=== PATIENT | male | born 1965 | race Caucasian/White ===

== ENCOUNTER 2021-04-09 08:26 | Outpatient (CLI) | payer MEDICARE, MEDICAID, SELFPAY ==
--- NOTE | ~2021-04-09 | MR_ITS ---
EXAMINATION: MR scapula RT wo con DATE: 04/09/2021 09:38 INDICATION: Right scapula pain. Injury 2 1/2 months ago. TECHNIQUE: Magnetic resonance imaging (MRI) of the right scapula was performed without intravenous co ntrast. Sequences included axial PD-weighted FS FSE and sagittal oblique and coronal oblique T2-weigh sofy FS FSE and T1-weighted FSE. COMPARISON: Right shoulder MRI 08/01/2009 FINDINGS: Bone alignment is normal. No fracture. There is mild osteoarthritis of acromioclavicular danisha int. There is mild subacromial/subdeltoid bursitis. There is a partial thickness tear of rotator cuff . There is no asymmetric fatty atrophy of the rotator cuff muscle bellies. IMPRESSION: 1. No fracture. 2. Partial-thickness tear of the right rotator cuff. 3. Mild osteoarthritis of acromioclavicular joint. 4. Mild subacromial/subdeltoid bursitis. Reviewed, dictated and finalized at location A.
== END 2021-04-09 08:27 | disposition home or self-care (01) ==
PROVIDERS: PCP Internal Medicine; Visit Provider Internal Medicine
DX: S39.92XA Unspecified injury of lower back, initial encounter (principal); M75.111 Incomplete rotator cuff tear or rupture of right shoulder, not specified as traumatic; M19.011 Primary osteoarthritis, right shoulder; M75.51 Bursitis of right shoulder
CPT/HCPCS: 73218

== ENCOUNTER 2021-05-02 09:15 | Inpatient (IN) | payer MEDICARE, MEDICAID, SELFPAY ==
--- NOTE | ~2021-05-02 | XR_ITS ---
EXAMINATION: XR sm bowel follow through WS EXAM DATE: 05/02/2021 17:22 INDICATION: Intussusception on CT. 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 Omnipaque/water soluble solution administered for small zaheer wel exam performed by radiologist Mitch Hutson M.D.. Spot images of the terminal ileum were acquired. Pulsed dose reduction fluoroscopy was used with fluoroscopic time of 0.3. A total of 56 images obt ained for the exam. Correlation is made to CT abdomen pelvis same date. FINDINGS: The 15, 30 and 45 minute KUB examinations demonstrated appearing jejunum and proximal ileum. On the 1 hour KUB there is a focal segment of small bowel narrowing which is indicated on this image. Length and location is consistent with intussusception seen on CT scan. This focal narrowing was not identified on the 1.5 hour or 2 hour image, and there was progressive op acification of ileum to the colon with a transit time of 2 hours. During this time patient had fallen asleep on the fluoroscopy table. When I discussed this case with him while obtaining spot images of the terminal ileum, indicated maybe his body reset itself , says he's had multiple episodes of this in the past. IMPRESSION: Probable identification of intussusception on 1hour KUB, which may have subsequently res olved, with adequate transit time of 2 hours to the cecum. Consider observing overnight and repeatin g CT if symptomatic tomorrow. Reviewed, dictated and finalized at location A. IMPRESSION: Probable identification of intussusception on 1hour KUB, which may have subsequently resolved, with adequate transit time of 2 hours to the cecum . Consider observing overnight and repeating CT if symptomatic tomorrow.
--- NOTE | ~2021-05-02 | CT_ITS ---
EXAMINATION: CT abdomen pelvis w con EXAM DATE: 05/02/2021 10:56 INDICATION: Right flank pain with nausea and vomiting for 3 days. TECHNIQUE: Spiral CT of the abdomen and pelvis was performed following intravenous injection of 100 m L Omnipaque 350. Axial, coronal and sagittal images of the abdomen and pelvis were reviewed. The do se-length product (DLP) for this examination was 541.18 mGy-cm. The exposure was tailored according to patient size (auto mA exposure control), and iterative reconstruction (ASIR) was used as additiona l dose reduction technique. There is no prior study for comparison. FINDINGS: The liver, spleen, adrenal glands and pancreas are unremarkable. Gallbladder is unremarkab le. No biliary obstruction. Portal and splenic veins are patent. Kidneys enhance symmetrically. T here is no hydronephrosis. The prostate is unremarkable. The bladder is unremarkable. There is no retroperitoneal or pelvic lymphadenopathy. There is approximately 6 cm of jejunal intussusception in the left mid abdomen. This has been indicat ed on axial image 83, coronal images 50-60. Mesentery does not appear inflamed and bowel is not dilat ed or obstructed appearing. Uncertain whether or not this is incidental and asymptomatic or causing p atient's acute symptoms. The appendix is not positively visualized. There is no pericecal inflammatory change to suggest appe ndicitis. There is expected amount of colonic stool. No free intraperitoneal gas. The heart is normal in size. There are no pericardial or pleural effusions. The lung bases are unremarkable. Th ere are no osteoblastic or osteolytic lesions identified. IMPRESSION: 1. Jejunal 6 cm length intussusception. Uncertain whether this is causing patient's symptoms or an i ncidental transient finding. 2. Otherwise unremarkable exam. Reviewed, dictated and finalized at location A. IMPRESSION: 1. Jejunal 6 cm length intussusception. Uncertain whether this is causing [place] ent's symptoms or an incidental transient finding. 2. Otherwise unremarkable exam.
--- NOTE | ~2021-05-02 | CT_ITS ---
EXAMINATION: CT abdomen pelvis wo con DATE: 05/03/2021 08:04 INDICATION: Possible persistent intussusception TECHNIQUE: Computed tomography (CT) of the abdomen and pelvis was performed without intravenous contr ast. Automated exposure control and iterative reconstruction technique were employed. The dose-length product was 528.02 mGy-cm. COMPARISON: 05/02/2021 FINDINGS: Minimal discoid atelectasis in the left lower lobe. Heart size is normal. No pericardial or pleural e ffusion. Liver, gallbladder, spleen, pancreas, bilateral adrenal glands and kidneys are normal. Bladd er is normal containing small amount of contrast likely related to the prior study. Oral contrast mat erial is now seen in the ileum and throughout the colon extending to the rectum. No abnormal bowel wa ll thickening or obstruction. The previously visualized likely transient small bowel intussusception is no longer visualized and is likely spontaneously reduced. No free intraperitoneal gas or fluid. No pathologically enlarged abdominal or pelvic lymphadenopathy. Mild scattered degenerative skeletal ch anges. IMPRESSION: 1. No acute intra-abdominal/pelvic process. Specifically no residual small bowel intussusception. Reviewed, dictated and finalized at location A. IMPRESSION: 1. No acute intra-abdominal/pelvic process. Specifically no residual small vianca l intussusception.
--- NOTE | 2021-05-02 09:18 | ED.GENADULT ---
HPI - General Adult General Chief complaint: Back Pain/Injury Stated complaint: N/V - right lower back pain Time Seen by Provider: 05/02/21 09:17 History of Present Illness HPI narrative: Patient is a 56-year-old male with past medical history significant for hypertension, peptic ulcer disease, hyperlipidemia, chronic back pain who comes to the ED today complaining of right-sided lower back pain for the last 15 days. Progressively worsening. Pain is constant but has shockwaves frequently. The pain radiates into his lower abdomen and into his right thigh. Blood no known exacerbating or alleviating factors. He has had associated nausea and vomiting and notes he cannot keep anything down including his medicines which includes oxycodone which he takes frequently for his chronic back pain. He says that this pain feels different than his chronic back pain. He says he is never had this type of pain before. He denies any fevers, diarrhea, constipation, paresthesia, bowel or bladder incontinence drainage, urinary symptoms or any other concerns. Related Data Home Medications Medication Instructions Recorded Confirmed oxycodone-acetaminophen 7.5 mg-325 1 tablet PO Q4H PRN tablet 06/03/19 03/14/21 mg tablet methocarbamol 500 mg tablet 500 mg PO ONCE PRN tablet 11/26/20 03/14/21 Allergies Allergy/AdvReac Type Severity Reaction Status Date / Time No Known Allergies Allergy Verified 05/02/21 09:38 Review of Systems Constitutional: Constitutional: Reports as per HPI, Denies fever(s), Denies night sweats and Denies weakness Cardiovascular: Cardiovascular: Denies chest pain, Denies edema, Denies leg edema, Denies dyspnea and Denies orthopnea Respiratory: Respiratory: Denies cough and Denies dyspnea Gastrointestinal: Gastrointestinal: Reports as per HPI, Reports abdominal pain, Denies constipation, Denies diarrhea, Reports nausea and Reports vomiting Musculoskeletal: Musculoskeletal: Reports as per HPI, Denies abnormal gait, Reports back pain, Denies numbness and Denies tingling Neurologic: Denies Abnormal speech present, Denies abnormal gait, Denies numbness, Denies tingling and Denies weakness Psychiatric: Psychiatric: Denies homicidal ideation and Denies suicidal ideation [facility] Family History Family History Father Family history of diabetes mellitus in first degree relative Family history of heart disease in male family member before age 55 Family history of malignant neoplasm Mother Family history of diabetes mellitus in first degree relative Family history of heart disease in male family member before age 55 Family history of malignant neoplasm Sibling Family history of diabetes mellitus in first degree relative Family history of heart disease in male family member before age 55 Social History Social History (Reviewed 03/14/21 @ 09:21 by Maria De Jesus Barnhart [facility]) Smoking packs per day: 0.75 Smoking cigarettes per day: 15.0 Years smoked: 10 Smoking pack-years: 7.50 Smoking status: Former smoker Tobacco type: cigarettes Second hand tobacco smoke exposure: Yes Smoking end date: 07/03/20 Alcohol intake: never Substance use: current Substance use type: marijuana Other substance usage details: medical Exam Const: General: cooperative, no acute distress, well developed, alert, awake, Physically active, uncomfortable and other (Uncomfortable appearing, he is frequently writhing in pain) Orientation/consciousness: patient oriented x3 Other: Occasionally gets irritated with my questions HENMT: Head: normal to inspection, normocephalic and atraumatic Ears: external ears normal General nose exam: Normal external nose present Eyes: Pupils: Equal, round and reactive pupils present EOM: EOMs intact bilaterally Neck: Neck: normal visual inspection Chest: Chest palpation & inspection: normal inspection of the chest and no tenderness Resp
[2021-05-02 09:30] VITALS: BP 146/96; PULSE 57; RESP 18; TEMP 36.8; O2SAT 100
[2021-05-02] MEDS: ONDANSETRON INJ 4 MG/2 ML VIAL IV PUSH ×2 (10:05→13:19)
[2021-05-02] MEDS: LACTATED RINGERS 1,000 ML 999 ML IV CONT (10:05)
[2021-05-02] MEDS: KETOROLAC 30 MG/ML VIAL (*BKC) IV PUSH (10:07)
[2021-05-02] MEDS: FAMOTIDINE 20 MG/2 ML VIAL IV PUSH (10:08)
[2021-05-02] MEDS: MORPHINE SULFATE (*CRX) 4 MG/ML INJ IV PUSH ×2 (10:09→13:19)
[2021-05-02 10:11] LABS: Basophils Percent Auto 0.2 % (0.2-1.2); Hematocrit 50.8 % (42.0-52.0); Hemoglobin 17.2 g/dL (14.0-18.0); Immature Granulocyte Absolute 0.06 K/mm3 (0.00-0.031); Immature Granulocyte Percent A 0.5 % (0-0.5); Lymphocytes Absolute Auto 2.01 K/mm3 (0.9-3.2); Lymphocytes Percent Auto 16.1 % (18.3-44.2); Mean Corpuscular HGB Conc 33.9 g/dl (32-36); Mean Corpuscular Hemoglobin 31.7 pg (26-34); Mean Corpuscular Volume 93.7 fl (80-100); Mean Platelet Volume 10.8 fl (7.4-10.4); Monocytes Absolute Auto 0.3 K/mm3 (0.1-0.6); Monocytes Percent Auto 2.2 % (2.6-8.5); Neutrophils Absolute Auto 10.1 K/mm3 (1.3-6.7); Platelet Count Result 261 k/mm3 (150-375); Red Blood Count 5.42 M/mm3 (4.6-6.20); Red Cell Distribution Width 12.5 % (11.5-14.5); White Blood Count 12.5 K/mm3 (4.5-10.0)
[2021-05-02 10:24] LABS: Add Urine Microscopic? YES; Appearance Urine Clear (Clear); Bilirubin Urine Negative (Negative); Blood Urine Negative (Negative); Color Urine Yellow (Yellow); Glucose Urine UA 2+ mg/dL (Negative); Ketones Urine Trace mg/dL (Negative); Leukocyte Esterase Ur Negative LEU/UL (Negative); Mucus Urine Rare /lpf; Nitrate Urine Negative (Negative); Protein Urine 1+ mg/dL (Negative); Specific Grav Ur 1.027 (1.001-1.035); Urobilinogen Urine Negative mg/dL (<2.0); WBC Urine 0-3 /hpf
[2021-05-02 10:36] LABS: Albumin Level 5.2 g/dL (3.5-5.1); Alkaline Phosphatase 74 U/L (38-126); Anion Gap 17 mmol/L (8-16); Aspartate Amino Transferase 35 U/L (17-59); Bilirubin,Total 0.7 mg/dL (0.2-1.3); Blood Urea Nitrogen 11 mg/dL (9-20); Calcium 9.7 mg/dL (8.4-10.2); Carbon Dioxide 22 mmol/L (22-30); Chloride 102 mmol/L (98-107); Estimated CRCL calculation 99 ml/min; Estimated Glomerular Filt Rate > 60; Glucose 175 mg/dL (65-110); Potassium 3.9 mmol/L (3.4-5.0); Sodium 141 mmol/L (137-145)
[2021-05-02 11:00] VITALS: BP 145/81; PULSE 60; RESP 9; O2SAT 100
[2021-05-02 11:49] LABS: Alanine Aminotransferase 30 U/L (4-50)
[2021-05-02 12:00] VITALS: BP 145/70; PULSE 75; RESP 18; O2SAT 100
[2021-05-02 14:26] VITALS: PULSE 75; RESP 18; O2SAT 100
--- NOTE | 2021-05-02 14:50 | PCAUD ---
called pt to verify medication, pt unable to tell nurse current medications.
[2021-05-02 14:53] VITALS: BMI 25.8
--- NOTE | 2021-05-02 15:02 | PCAUD ---
Marcia informed pt in pain 12/10 and having n&v, awaiting orders.
--- NOTE | 2021-05-02 15:02 | PCAUD ---
pt off floor for GI procedure.
--- NOTE | 2021-05-02 15:05 | PCAUD ---
called [facility]'s office for them to fax over medication list.
--- NOTE | 2021-05-02 15:10 | PCAUD ---
[facility] exchanged called to verify medications.
--- NOTE | 2021-05-02 15:25 | PM.IMHP ---
H&P: HPI History of Present Illness Date/Time: 05/02/21 15:20 <Marcia Malagon PA-C - Last Filed: 05/02/21 23:06> Chief Complaint: Right low back pain, nausea, vomiting. <Marcia Malagon PA-C - Last Filed: 05/02/21 23:06> Narrative: This is a 56-year-old male with history of anxiety, hypertension, hyperlipidemia, and chronic back pain on long-term opiate therapy presented to the emergency department earlier today via private vehicle from home for evaluation of right lower back pain, nausea, and vomiting. For the past 2 weeks he has been experiencing progressively worse, constant sharp, shooting ?shockwaves? in the right lower back radiating into the right lower abdomen and into the right thigh. This pain is different than that he experiences with his chronic back pain and he has never had similar symptoms in the past. Unfortunately he has also been having pretty significant nausea and vomiting with that and he has been unable to hold down his medications since last evening, including oxycodone which he takes as needed for his pain no typically only at bedtime. CT of the abdomen/pelvis done in the emergency department showed jejunal 6 cm length intussusception with no other significant findings and he is being admitted in this setting. Aside from a mildly increased WBC of 12.5, his labs are otherwise unremarkable. At the time my evaluation he has reproducible tenderness to palpation in the right lumbar paraspinous region to the point where he will jump off of the bed even with mild palpation. He has no tenderness to palpation of the abdomen though he has just received pain medications. With regards to the nausea and vomiting, he reports having several hospitalizations for the same and he has been seen by Dr. Gallardo though patient tells me no significant findings were ever noted. He also tells me that he has never heard the word intussusception before though he told Wendy Smith NP that he had a history of such in 2011. He does smoke medical marijuana daily, but only takes 1 to 3 hits at a time as needed for his pain. No fever, chills, or sweats. He had perhaps some small streaks of blood in his emesis but no overt hematemesis. No melena or hematochezia. <Marcia Malagon PA-C - Last Filed: 05/02/21 23:06> Review of Systems Review of Systems: Twelve systems were reviewed with pertinent positives and negatives as per HPI. No sick contacts. He has been having issues with his right shoulder and was told that he probably tore his rotator cuff and has an upcoming appoint with an orthopedic surgeon to discuss management. No hematuria or dysuria. Except as documented, all other systems were reviewed and are negative. <Marcia Malagon PA-C - Last Filed: 05/02/21 23:06> [facility] Past Medical History Medical History: Medical History Anxiety Chronic low back pain Chronic prescription opiate use Essential (primary) hypertension Gastroesophageal reflux disease without esophagitis History of cerebral hemorrhage History of intussusception 2011 Mixed hyperlipidemia Osteoarthritis of cervical spine Peptic ulcer Personal history of nicotine dependence <Marcia Malagon PA-C - Last Filed: 05/02/21 23:06> Surgical History Surgical History: Surgical History History of appendectomy History of facial surgery <Marcia Malagon PA-C - Last Filed: 05/02/21 23:06> Family History Family History: Family History Father Family history of diabetes mellitus in first degree relative Family history of heart disease in male family member before age 55 Family history of malignant neoplasm Mother Family history of diabetes mellitus in first degree relative Family history of heart disease in male family member before age 55 Family history of malignant ne
--- NOTE | 2021-05-02 15:33 | PM.CNGS ---
Assessment and Plan Assessment and plan (1) Intussusception: Code(s): K56.1 - Intussusception Status: Acute Assessment and Plan: CT scan reviewed and discussed with the patient in detail. There is a 6 cm segment of mid jejunal intussusception. Most commonly this is transient, although the patient is still having significant abdominal pain and vomiting. This does not appear to be causing a small bowel obstruction on the CT scan, although could consider an NG tube if his vomiting persists. One consideration could be that his violent vomiting caused the intussusception. It also appears that he has a history of this in the past, which resolved with conservative management. We have ordered a Gastrografin small bowel follow through to help further evaluate if this is transient or persistent, and this would also show if there is an obstruction. If there is an obstruction or still evidence of an intussusception and he does not improve, then he would require exploratory surgery. Could also consider repeating a CT scan tomorrow if he does not improve. Keep him NPO for now with IV fluids, analgesics PRN, and antiemetics. Phenergan has been added and will be given to the patient during his SBFT. Thank you for allowing us to see the patient in consultation and we will continue to follow along with you. (2) Essential (primary) hypertension: Code(s): I10 - Essential (primary) hypertension Status: Acute (3) Chronic low back pain: Code(s): M54.5 - Low back pain; G89.29 - Other chronic pain Status: Acute (4) Chronic prescription opiate use: Code(s): Z79.891 - manager terminal (current) use of opiate analgesic Status: Acute Assessment and Plan: Unable to take his pain medication over the past 24 hours as usual due to his nausea and vomiting. Possibility that some of this could be related to withdrawal? (5) Anxiety: Code(s): F41.9 - Anxiety disorder, unspecified Status: Acute Additional Plan I have discussed the patient's case and plan of care with Dr. Gavin. History of Present Illness Consult details Consult date: 05/02/21 Reason for consult: other (Jejunal intussusception) Requesting physician: Tez No PA-C Narrative: This is a 56 yo M who presented to the ER today with complaints of abdominal pain, back pain, and vomiting. He has a history hypertension, hyperlipidemia, peptic ulcer disease, and chronic back pain treated with opioids. The patient reports that he began having some moderate low back pain about 3 weeks ago that he initially thought was a muscle strain. He had been using heating pads and his medication for his chronic back pain to try and alleviate his pain. This did not seem to help. Yesterday evening, he reports having a sudden onset of violent vomiting. He reports an unnumerable amount of vomiting, more than 10 times. Shortly after vomiting, he began having severe lower abdominal pain. This is different than the pain he had been experiencing over the past few weeks. He has never had this pain before. He felt this was likely related to his violent vomiting. He states that he did not have any coffee ground or bloody emesis. The abdominal pain became so severe that he reports he was becoming delusional and decided to come to the ER. CT scan of the abdomen/pelvis was done and showed a 6 cm length jejunal intussusception. Labs showed mild leukocytosis, but were otherwise unremarkable. The patient was having severe abdominal pain and was vomiting in the ER. Our service was called by the ED physician. He is being admitted to the Hospitalist service and our service is consulted for the intussusception. Dr. Gavin has ordered a Gastrografin small bowel follow through, so I am now seeing the patient in radiology. When I entered the radiology room, the patient was jerking and flailing on the table while moaning. He would answer some of my questions initially but was mostly just moaning, which s
[2021-05-02] MEDS: HYDROmorphone HCL INJ (*CRX) 1 MG/ML SYR IV PUSH ×2 (15:47→20:37)
[2021-05-02] MEDS: PROMETHAZINE HCL 25 MG/ML AMPUL IM ×2 (15:52→20:37)
--- NOTE | 2021-05-02 16:07 | PCAUD ---
Spoke in [facility], office will fax medication list in am.
[2021-05-02 18:00] LABS: CRP < 0.5 mg/dL (<1.0)
[2021-05-02 18:25] LABS: Erythrocyte Sedimentation Rate 5 mm/hr (0-20)
[2021-05-02 19:26] LABS: Hemoglobin A1C 5.5 % (<5.7)
[2021-05-02 20:00] VITALS: O2SAT 94
[2021-05-02 22:00] VITALS: BP 91/59; PULSE 43; RESP 16; TEMP 36.7; O2SAT 94
[2021-05-03] MEDS: HYDROmorphone HCL INJ (*CRX) 1 MG/ML SYR IV PUSH ×5 (02:06→20:50)
[2021-05-03] MEDS: PROMETHAZINE HCL 25 MG/ML AMPUL IM (02:08)
[2021-05-03 06:00] VITALS: BP 125/72; PULSE 64; RESP 18; TEMP 36.8; O2SAT 97
[2021-05-03 08:00] VITALS: PULSE 64; RESP 18; O2SAT 97
--- NOTE | 2021-05-03 08:06 | PM.PNGS ---
Progress Note: A&P Assessment and Plan (1) Intussusception: Code(s): K56.1 - Intussusception Status: Acute Assessment and Plan: SBFT showed possible resolution of intussusception. No mass or filling defects identified that could be a lead point. Will get repeat CT this AM. If signs of intussusception still present, then will proceed with diagnostic laparoscopy today. If resolved, laparoscopy would not likely offer any benefit because bowel would most likely look normal. Discussed further workup at tertiary center as outpatient if this episode has resolved. 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 No more nausea or vomiting. Bowels moving. Abdomen tender from all of the vomiting, but he doesn't complain of any deeper abdominal pain. No fevers. Review of Systems Review of Systems: All systems reviewed & are unremarkable except as noted in HPI and below Exam Const: General: no acute distress and alert GI: Inspection: normal to inspection and non-distended GI Palp: Yes Soft to palpation, Yes Tenderness to palpation present (GI) (slight lower abdominal TTP), No Guarding due to palpation present (GI) and No Rebound tenderness present Percussion: Yes normal to percussion Auscultation: normal bowel sounds Objective Data Vital Signs Vital Signs: Vital Signs - 24 hr 05/02/21 09:30 05/02/21 11:00 05/02/21 12:00 Temperature 36.8 C Pulse Rate 57 L 60 75 Respiratory Rate 18 9 L 18 Blood Pressure 146/96 H 145/81 H 145/70 H Pulse Oximetry 100 100 100 05/02/21 14:26 05/02/21 20:00 05/02/21 22:00 Temperature 36.7 C Pulse Rate 75 43 L Respiratory Rate 18 16 Blood Pressure 91/59 L Pulse Oximetry 100 94 94 05/03/21 06:00 Temperature 36.8 C Pulse Rate 64 Respiratory Rate 18 Blood Pressure 125/72 Pulse Oximetry 97 Intake/Output Intake/Output: Intake & Output 04/30/21 05/01/21 05/02/21 05/03/21 23:59 23:59 23:59 23:59 Intake Total 1000 0 Output Total 0 50 Balance 1000 -50 Meds/Results Medications: Active Medications Generic Name Dose Route Start Last Admin Trade Name Freq PRN Reason Stop Dose Admin Hydromorphone HCl 1 mg 05/02/21 15:27 05/03/21 07:51 Hydromorphone Hcl Inj (*Crx) 1 Mg/Ml Syr IV PUSH 1 mg Q3H PRN Administration Pain Rated 7-10 Promethazine HCl 25 mg 05/02/21 15:27 05/03/21 02:08 Promethazine Hcl 25 Mg/Ml Ampul IM 25 mg Q4H PRN Administration Nausea And Vomiting Radiology Results: ITS Impressions Small Bowel X-Ray 05/02/21 17:24 IMPRESSION: Probable identification of intussusception on 1hour KUB, which may have subsequently resolved, with adequate transit time of 2 hours to the cecum. Consider observing overnight and repeating CT if symptomatic tomorrow. Labs Labs: Laboratory Results - last 24 hr 05/02/21 05/02/21 05/02/21 09:53 09:53 09:57 WBC 12.5 H RBC 5.42 Hgb 17.2 Hct 50.8 MCV 93.7 MCH 31.7 MCHC 33.9 RDW 12.5 Plt Count 261 MPV 10.8 H Immature Gran % (Auto) 0.5 Neut % (Auto) 81.0 H Lymph % (Auto) 16.1 L Hodgeman % (Auto) 2.2 L Eos % (Auto) 0.0 Baso % (Auto) 0.2 Lymph # (Auto) 2.01 Hodgeman # (Auto) 0.3 Eos # (Auto) 0.0 Baso # (Auto) 0.0 Abs Immat Gran (auto) 0.06 H Absolute Neuts (auto) 10.1 H Absolute Nucleated RBC 0.0 Nucleated RBC % 0.0 ESR Sodium 141 Potassium 3.9 Chloride 102 Carbon Dioxide
[2021-05-03] MEDS: LIDOCAINE 5% PATCH 3 PATCH TRANSDERM (10:59)
[2021-05-03] MEDS: CYCLOBENZAPRINE HCL 10 MG TABLET PO ×2 (10:59→17:37)
--- NOTE | 2021-05-03 13:14 | PM.IMPN ---
Progress Note: A&P Assessment and Plan (1) Intussusception: Code(s): K56.1 - Intussusception Status: Acute Assessment and Plan: Jejunal 6 cm length intussusception noted on CT. He just returned from a small bowel follow-through and he will remain NPO for the time being. He has received Phenergan with improvement in his nausea and he has not had emesis for a couple of hours. Should he continue to have persistent vomiting NG tube would be appropriate. 05/03 Interval History:Patient clinical symptoms are improved and SBFT showed resolution of intussusception and patient of the BM with contrast, seen by surgery service to further evaluate patient had a CT scan of the abdomen which also showed complete resolution of intussusception. surgery service does not recommend any surgical intervention recommended monitor conservatively, currently patient complains of persistent low back which he developed while vomiting and believes patient has full the muscle, will give the patient Flexeril and apply Lidoderm patches as well as have PT OT evaluate the patient and further recommendation to follow (2) Right-sided low back pain with sciatica: Qualifiers: Chronicity: chronic Sciatica laterality: sciatica of right side Qualified Code(s): M54.41 - Lumbago with sciatica, right side; G89.29 - Other chronic pain Code(s): M54.41 - Lumbago with sciatica, right side Status: Acute Assessment and Plan: This pain is different than his chronic back pain but seems to be lumbar radiculopathy with sciatica. Due to ongoing nausea and vomiting he has not been able to hold down his opiates thus will try IV dilaudid to see if we can get his pain under control. PT consulted for further recommendations. Consider MRI if no improvement. (3) Hyperglycemia: Code(s): R73.9 - Hyperglycemia, unspecified Status: Acute Assessment and Plan: Check fasting glucose and hemoglobin A1c. (4) Essential (primary) hypertension: Code(s): I10 - Essential (primary) hypertension Status: Acute Assessment and Plan: Blood pressures were reviewed and they are reasonably well controlled. Continue antihypertensives and monitor daily. (5) Anxiety: Code(s): F41.9 - Anxiety disorder, unspecified Status: Acute Assessment and Plan: Continue chronically prescribed clonazepam 2 mg b.i.d. 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 Subjective Date/time seen: 05/03/21 13:14 Chief Complaint: Right low back pain, nausea, vomiting. <Marcia Malagon PA-C - Last Filed: 05/02/21 23:06> Narrative: This is a 56-year-old male with history of anxiety, hypertension, hyperlipidemia, and chronic back pain on long-term opiate therapy presented to the emergency department earlier today via private vehicle from home for evaluation of right lower back pain, nausea, and vomiting. For the past 2 weeks he has been experiencing progressively worse, constant sharp, shooting ?shockwaves? in the right lower back radiating into the right lower abdomen and into the right thigh. This pain is different than that he experiences with his chronic back pain and he has never had similar symptoms in the past. Unfortunately he has also been having pretty significant nausea and vomiting with that and he has been unable to hold down his medications since last evening, including oxycodone which he takes as needed for his pain no typically only at bedtime. CT of the abdomen/pelvis done in the emergency department showed jejunal 6 cm length intussusception with no other significant findings and he is being admitted in this setting. Aside from a mildly increased WBC of 12.5, his labs are otherwise unremarkable. At the time my evaluation he has reproducible tenderness to p
[2021-05-03 14:44] VITALS: BP 123/73; PULSE 65; RESP 14; TEMP 36.9; O2SAT 92
[2021-05-03 21:55] VITALS: BP 114/68; PULSE 56; RESP 18; TEMP 37.1; O2SAT 98
[2021-05-04] MEDS: HYDROmorphone HCL INJ (*CRX) 1 MG/ML SYR IV PUSH ×3 (01:36→09:50)
[2021-05-04 05:26] VITALS: BP 128/81; PULSE 72; RESP 20; TEMP 37.2; O2SAT 94
[2021-05-04 06:43] LABS: Hematocrit 43.8 % (42.0-52.0); Hemoglobin 14.5 g/dL (14.0-18.0); Mean Corpuscular HGB Conc 33.1 g/dl (32-36); Mean Corpuscular Hemoglobin 31.8 pg (26-34); Mean Corpuscular Volume 96.1 fl (80-100); Mean Platelet Volume 10.2 fl (7.4-10.4); Platelet Count Result 195 k/mm3 (150-375); Red Blood Count 4.56 M/mm3 (4.6-6.20); Red Cell Distribution Width 12.3 % (11.5-14.5); White Blood Count 11.8 K/mm3 (4.5-10.0)
[2021-05-04 06:59] LABS: Alanine Aminotransferase 19 U/L (4-50); Albumin Level 4.1 g/dL (3.5-5.1); Alkaline Phosphatase 51 U/L (38-126); Anion Gap 8 mmol/L (8-16); Aspartate Amino Transferase 46 U/L (17-59); Blood Urea Nitrogen 20 mg/dL (9-20); Calcium 8.7 mg/dL (8.4-10.2); Carbon Dioxide 27 mmol/L (22-30); Chloride 101 mmol/L (98-107); Estimated CRCL calculation 88 ml/min; Estimated Glomerular Filt Rate > 60; Glucose 99 mg/dL (65-110); Magnesium 2.2 mg/dL (1.6-2.3); Potassium 3.6 mmol/L (3.4-5.0); Sodium 136 mmol/L (137-145)
[2021-05-04 08:00] VITALS: PULSE 72; RESP 20; O2SAT 94
--- NOTE | 2021-05-04 08:31 | PM.DS ---
DS: Admitting Diagnosis Discharge Date 05/04/2021 Admitting Diagnosis Right low back pain, nausea, vomiting. DS: Discharge Diagnosis Discharge Diagnosis (1) Intussusception: Code(s): K56.1 - Intussusception Status: Acute Assessment and Plan: Jejunal 6 cm length intussusception noted on CT. He just returned from a small bowel follow-through and he will remain NPO for the time being. He has received Phenergan with improvement in his nausea and he has not had emesis for a couple of hours. Should he continue to have persistent vomiting NG tube would be appropriate. 05/03 Interval History:Patient clinical symptoms are improved and SBFT showed resolution of intussusception and patient of the BM with contrast, seen by surgery service to further evaluate patient had a CT scan of the abdomen which also showed complete resolution of intussusception. surgery service does not recommend any surgical intervention recommended monitor conservatively, currently patient complains of persistent low back which he developed while vomiting and believes patient has full the muscle, will give the patient Flexeril and apply Lidoderm patches as well as have PT OT evaluate the patient and further recommendation to follow (2) Right-sided low back pain with sciatica: Qualifiers: Chronicity: chronic Sciatica laterality: sciatica of right side Qualified Code(s): M54.41 - Lumbago with sciatica, right side; G89.29 - Other chronic pain Code(s): M54.41 - Lumbago with sciatica, right side Status: Acute Assessment and Plan: This pain is different than his chronic back pain but seems to be lumbar radiculopathy with sciatica. Due to ongoing nausea and vomiting he has not been able to hold down his opiates thus will try IV dilaudid to see if we can get his pain under control. PT consulted for further recommendations. Consider MRI if no improvement. (3) Hyperglycemia: Code(s): R73.9 - Hyperglycemia, unspecified Status: Acute Assessment and Plan: Check fasting glucose and hemoglobin A1c. (4) Essential (primary) hypertension: Code(s): I10 - Essential (primary) hypertension Status: Acute Assessment and Plan: Blood pressures were reviewed and they are reasonably well controlled. Continue antihypertensives and monitor daily. (5) Anxiety: Code(s): F41.9 - Anxiety disorder, unspecified Status: Acute Assessment and Plan: Continue chronically prescribed clonazepam 2 mg b.i.d. 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 DS: Summary Hospital Course Reason for hospitalization: Chief Complaint: Right low back pain, nausea, vomiting. <Marcia Malagon PA-C - Last Filed: 05/02/21 23:06> Narrative: This is a 56-year-old male with history of anxiety, hypertension, hyperlipidemia, and chronic back pain on long-term opiate therapy presented to the emergency department earlier today via private vehicle from home for evaluation of right lower back pain, nausea, and vomiting. For the past 2 weeks he has been experiencing progressively worse, constant sharp, shooting ?shockwaves? in the right lower back radiating into the right lower abdomen and into the right thigh. This pain is different than that he experiences with his chronic back pain and he has never had similar symptoms in the past. Unfortunately he has also been having pretty significant nausea and vomiting with that and he has been unable to hold down his medications since last evening, including oxycodone which he takes as needed for his pain no typically only at bedtime. CT of the abdomen/pelvis done in the emergency department showed jejunal 6 cm length intussusception with no other significant findings and he is being admitted in this setting. Aside
== END 2021-05-04 09:15 | disposition home or self-care (01) | DRG 390 ==
LOC: ANHED 13:01 → ANH3MEDSUR 13:46
PROVIDERS: Physician Assistant; Physician Assistant Medical; Admitting Provider Family Medicine; Emergency Provider Emergency Medicine; PCP Internal Medicine; Visit Provider Family Medicine
DX: K56.1 Intussusception (principal); M54.16 Radiculopathy, lumbar region; M54.41 Lumbago with sciatica, right side; R73.9 Hyperglycemia, unspecified; I10 Essential (primary) hypertension; F41.9 Anxiety disorder, unspecified; E78.5 Hyperlipidemia, unspecified; K21.9 Gastro-esophageal reflux disease without esophagitis; M47.892 Other spondylosis, cervical region; Z79.891 Long term (current) use of opiate analgesic; Z87.891 Personal history of nicotine dependence; Z87.11 Personal history of peptic ulcer disease; Z90.49 Acquired absence of other specified parts of digestive tract
CPT/HCPCS: 36415; 74176; 74177; 74250; 80053; 81001; 83036; 83735; 85025; 85027; 85652; 86140; 96361; 96372; 96374; 96375; 96376; 99285; A9270; G0378; J1170; J1885; J2270; J2405; J2550; J7120; Q9967

== ENCOUNTER 2021-05-13 13:13 | Outpatient (CLI) | payer MEDICARE, SELFPAY ==
--- NOTE | ~2021-05-13 | XR_ITS ---
XR shoulder RT min 2V DATE: 05/13/2021 13:35 INDICATION: Right shoulder pain TECHNIQUE: 4 views COMPARISON: None FINDINGS: No fracture or dislocation, periosteal reaction or bone destruction or abnormal soft tissue calcification. Normal alignment at the right acromioclavicular and glenohumeral joints. IMPRESSION: Negative Reviewed, dictated and finalized at location B. IMPRESSION: Negative
== END 2021-05-13 13:14 | disposition home or self-care (01) ==
PROVIDERS: PCP Internal Medicine; Visit Provider Orthopaedic Surgery
DX: M25.511 Pain in right shoulder (principal)
CPT/HCPCS: 73030

== ENCOUNTER 2021-06-10 12:15 | Outpatient (CLI) | payer MEDICARE, MEDICAID, SELFPAY ==
--- NOTE | ~2021-06-10 | XR_ITS ---
EXAMINATION: XR elbow RT min 3V EXAM DATE: 06/10/2021 13:05 INDICATION: Pain in Rt shoulder radiating down arm. TECHNIQUE: Right elbow frontal, lateral with flexion, and oblique projections obtained and reviewed. There is no prior study for comparison. FINDINGS: Right elbow anterior humeral line intact. There are no acute fractures or dislocations edgard ntified. There is no subcutaneous gas. The soft tissue is unremarkable. There are no radiopaque f oreign bodies. IMPRESSION: 1. Unremarkable XR elbow RT min 3V exam. Reviewed, dictated and finalized at location A. INE STRIPPER CUTTER
--- NOTE | ~2021-06-10 | XR_ITS ---
EXAMINATION: XR wrist RT min 3V EXAM DATE: 06/10/2021 13:05 INDICATION: Pain in Rt shoulder radiating down arm. TECHNIQUE: Right wrist frontal, frontal with ulnar deviation, oblique and lateral projections obtain ed and reviewed. There is no prior study for comparison. FINDINGS: Right wrist scapholunate joint space is maintained. Small lunate lucency likely subchondra l cyst. There is a healed 5th metacarpal shaft fracture. There are no acute fractures or dislocations identified. There is no subcutaneous gas. The soft tissue is unremarkable. There are no radiopaq ue foreign bodies. IMPRESSION: Chronic findings as above. Reviewed, dictated and finalized at location A. L TRIM ERECTOR IMPRESSION: Chronic findings as above.
== END 2021-06-10 12:16 | disposition home or self-care (01) ==
PROVIDERS: PCP Internal Medicine; Visit Provider Orthopaedic Surgery
DX: M79.601 Pain in right arm (principal)
CPT/HCPCS: 73080; 73110

== ENCOUNTER 2021-07-31 14:13 | Outpatient (CLI) | payer MEDICARE, MEDICAID, SELFPAY ==
--- NOTE | 2021-07-31 14:30 | ECG_ITS ---
Measurements Intervals [place] Rate: 70 P: 48 HI: 94 QRS: 7 QRSD: 79 T: 37 QT: 361 QTc: 392 Interpretive Statements SINUS RHYTHM WITH SHORT HI INTERVAL RSR' IN V1 OR V2, PROBABLY NORMAL VARIANT BASELINE ARTIFACT- I, II, III, AVR, AVL, AVF, V1-V6 BORDERLINE ECG Electronically Signed On 07-31-2021 15:37:26 MANAGER BUSINESS PROCESS by Alfredo Schmidt D.O.
== END 2021-07-31 14:14 | disposition home or self-care (01) ==
LOC: ANHSURGERY 14:19
PROVIDERS: PCP Internal Medicine; Visit Provider Orthopaedic Surgery
DX: E78.5 Hyperlipidemia, unspecified (principal); I10 Essential (primary) hypertension; Z01.818 Encounter for other preprocedural examination; R94.31 Abnormal electrocardiogram [ECG] [EKG]
CPT/HCPCS: 93005

== ENCOUNTER 2021-08-08 01:28 | Day surgery (SDC) | payer MEDICARE, MEDICAID, SELFPAY ==
[2021-07-30 14:30] VITALS: BMI 25.7
--- NOTE | 2021-07-30 14:51 | PC.NURSE ---
Report to the Outpatient Waiting Room, entrance under the green pavilion located off [facility], at time 8:00 on date 08/08/21. OR Time: 10:00. - You will be asked a series of questions to screen for COVID 19 for your protection. - A mask is required within the hospital. - No visitors are allowed at this time. Preoperative COVID Testing Requirements: No COVID Test needed if: (proof is required; if not received patient will have Rapid Test prior to entry) - Patient has received COVID Vaccine at least 14 days prior to procedure date or - Patient has positive COVID test result within last 90 days of surgery date. COVID Test needed if above criteria is not met Patients may have clear liquids (water, carbonated beverages, clear teas, apple juice) until 3 hours prior to surgery (7:00) with a maximum of 20 ounces. - No food from midnight until time of surgery Take the following medications with a SIP of water the morning of surgery: CLONAZEPAM AND PAIN PILL (IF NEEDED) Medications to discontinue per physician: VITAMINS/SUPPLEMENTS Date to take last dose: 08/04/21 Please no make-up, nail czech, hairspray, perfume, deodorant, or body powder the day of surgery. No jewelry (including any body piercings) or valuables the day of surgery, leave them at home. Please take a shower or bath the night before, or the morning of, surgery with an antibacterial soap. Wear comfortable, loose fitting clothing. - Jewelry must be removed prior to entering the operating room. Rings and piercings that are not removed may be cut off. - The hospital will not accept responsibility for valuables. - Please leave all valuables, including medications, at home the day of surgery. If you are going home after surgery, a licensed rail car driver must drive you home. - NO public transportation without another adult. - We recommend that an adult stay with you for 24 hours following discharge. - We also recommend that you do not drive, make important decision, drink alcoholic beverages, or take any drugs that were not prescribed by your health care provider for at least 24 hours after your discharge time. Follow any additional instructions given to you from your surgeon. Telephone instructions given to HALEIGH BLANCO and asked if any additional questions and then verbalized understanding. Patient advised to call surgeon office or pre surgery nurse liaison [phone] if any additional questions.
--- NOTE | 2021-08-07 13:04 | PM.IMHP ---
H&P: HPI History of Present Illness Date/Time: 08/07/21 13:04 Chief Complaint: Right arm pain, numbness and tingling Narrative: 56-year-old gentleman injured right arm January 01, 2021. Now with continued pain, numbness and tingling right elbow, forearm wrist and hand. Difficulty with activity and using the arm/ hand. 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 Failed conservative treatment with immobilization, anti-inflammatories, therapy. Presents for operative treatment. Review of Systems Constitutional: Constitutional: Denies fever(s) Eyes: Eyes: Denies blurry vision ENT: Reports Normal hearing present Cardiovascular: Cardiovascular: Denies chest pain and Denies dyspnea Respiratory: Respiratory: Denies dyspnea and Denies wheezing Gastrointestinal: Gastrointestinal: Denies abdominal pain Genitourinary: Genitourinary: Denies urinary urgency Musculoskeletal: Musculoskeletal: Reports as per HPI and Denies numbness Integumentary/Breasts: Skin/Breast: Denies changing lesions and Denies sores Neurologic: Reports Normal hearing present, Denies behavioral changes, Denies confusion, Denies numbness and Denies convulsions Psychiatric: Psychiatric: Denies behavioral changes, Denies confusion and Denies hallucinations Endocrine: Endocrine: Denies heat intolerance Hematologic/Lymphatic: Hematologic/Lymphatic: Denies easy bleeding Allergic/Immunologic: Allergic/Immunologic: Denies wheezing PMFSH Past Medical History Medical History (Updated 08/07/21 @ 13:09 by Gonzalez Sellers MD) Abdominal pain Anesthesia complication Anxiety Carpal tunnel syndrome, right Chronic low back pain Chronic prescription opiate use Chronic, continuous use of opioids Cubital tunnel syndrome on right Essential (primary) hypertension Gastroesophageal reflux disease without esophagitis Guyon syndrome History of cerebral hemorrhage History of intussusception 2011 HLD (hyperlipidemia) Hospitalization within last 30 days HTN (hypertension) Mixed hyperlipidemia Nausea & vomiting Osteoarthritis of cervical spine Peptic ulcer Personal history of nicotine dependence Stomach ulcer Ulnar neuropathy Vision loss Surgical History Surgical History History of appendectomy 1979 History of facial surgery 2000 Family History Family History Father Family history of diabetes mellitus in first degree relative Family history of heart disease in male family member before age 55 Family history of malignant neoplasm Mother Family history of diabetes mellitus in first degree relative Family history of heart disease in male family member before age 55 Family history of malignant neoplasm Sibling Family history of diabetes mellitus in first degree relative Family history of heart disease in male family member before age 55 Other Diabetes mellitus HLD (hyperlipidemia) Heart disease Hypertension Lung cancer Lung disease Social History Social History Social History: Surrogate decision maker: Veronica Garcias, . Code status: Full code. Smoking packs per day: 0.75 Smoking cigarettes per day: 15.0 Years smoked: 20 Smoking pack-years: 15.00 Smoking status: Current every day smoker Tobacco type: cigarettes Smokeless tobacco user: other Second hand tobacco smoke exposure: Yes Smoking end date: 07/03/20 Alcohol intake: never Substance use: current Substance use type: marijuana Other substance usage details: DAILY Additional living arrangements comments: Resides in [place] with his . Additional occupation/education comments: Unemployed/Disabled Gender identity (if verbalized by the patient): Male Spiritual care concerns: No Meds Home Medications and Allergies Home
--- NOTE | 2021-08-08 06:57 | WPDHPUPDATE1 ---
History and Physical Update Update Date/Time: 08/08/21 06:57 History and Physical has been reviewed, including an updated exam of the patient. There are NO changes in the patient's condition. Risks, benefits, and alternatives have been discussed and questions answered. Patient agrees to proceed with procedure.
[2021-08-08] MEDS: LACTATED RINGERS 1,000 ML 30 ML IV CONT ×2 (07:09→09:55)
[2021-08-08] MEDS: KETOROLAC 15 MG/ML VIAL (*BKC) IV PUSH (07:10)
[2021-08-08 07:33] VITALS: BP 104/68; PULSE 75; RESP 16; TEMP 37; O2SAT 95
--- NOTE | 2021-08-08 07:33 | WPDANESEPPF ---
Anes - Initial Pre Proc Eval Procedure: Operation Date: 08/08/21 08:30 Proposed Procedures p Right Carpal Tunnel Release, Right Cubital Tunnel Release - Gonzalez Sellers MD s Right Ulnar Tunnel Release - Gonzalez Sellers MD Date/Time: 08/08/21 07:33 Surgeon: Gonzalez Sellers MD Pre Op Diagnosis: Rt Carpal Tunnel Syn, Rt Cubital Tunnel Syn Patient Data Age: 56 Gender: M Height: 1.83 m Weight: 88.8 kg Allergies Allergy/AdvReac Type Severity Reaction Status Date / Time No Known Allergies Allergy Verified 08/08/21 06:16 Home Medications Medication Instructions Recorded Confirmed Type methocarbamol 500 mg tablet 500 mg PO ONCE PRN tablet 11/26/20 07/30/21 History enalapril maleate 20 mg tablet 20 mg PO DAILY #180 tablet 12/03/20 08/08/21 Rx simvastatin 80 mg tablet See Rx Instructions .ROUTE 12/03/20 08/08/21 Rx .COMPLEX #90 tablet clonazepam 2 mg tablet 2 mg PO BID #60 tablet 03/18/21 08/08/21 Rx pantoprazole 40 mg tablet,delayed 40 mg PO QAM #30 tablet 04/25/21 08/08/21 Rx release cyclobenzaprine 10 mg PO TID PRN #90 tablet 05/04/21 07/30/21 Rx multivitamin 1 tablet PO DAILY 05/16/21 08/08/21 History ondansetron HCl [Zofran] 4 mg PO Q8H PRN #10 tablet 08/08/21 Rx oxycodone-acetaminophen 1 tablet PO Q6H PRN #30 tablet 08/08/21 Rx sennosides-docusate sodium [Senna 1 tab-cap PO HS #14 tablet 08/08/21 Rx with Docusate Sodium] Patient hx anesthesia problems: none Family hx anesthesia problems: none Results Review: All pre-operative results and documents have been reviewed as part of the pre-operative evaluation. [facility] Past Medical History Medical History (Updated 08/07/21 @ 13:09 by Gonzalez Sellers MD) Abdominal pain Anesthesia complication Anxiety Carpal tunnel syndrome, right Chronic low back pain Chronic prescription opiate use Chronic, continuous use of opioids Cubital tunnel syndrome on right Essential (primary) hypertension Gastroesophageal reflux disease without esophagitis Guyon syndrome History of cerebral hemorrhage History of intussusception 2011 HLD (hyperlipidemia) Hospitalization within last 30 days HTN (hypertension) Mixed hyperlipidemia Nausea & vomiting Osteoarthritis of cervical spine Peptic ulcer Personal history of nicotine dependence Stomach ulcer Ulnar neuropathy Vision loss Surgical History Surgical History History of appendectomy 1980 History of facial surgery 2000 Family History Family History Father Family history of diabetes mellitus in first degree relative Family history of heart disease in male family member before age 55 Family history of malignant neoplasm Mother Family history of diabetes mellitus in first degree relative Family history of heart disease in male family member before age 55 Family history of malignant neoplasm Sibling Family history of diabetes mellitus in first degree relative Family history of heart disease in male family member before age 55 Other Diabetes mellitus HLD (hyperlipidemia) Heart disease Hypertension Lung cancer Lung disease Social History Social History Social History: Surrogate decision maker: Veronica Garcias, . Code status: Full code. Smoking packs per day: 0.75 Smoking cigarettes per day: 15.0 Years smoked: 10 Smoking pack-years: 7.50 Smoking status: Current every day smoker Tobacco type: smokeless tobacco Smokeless tobacco user: other Second hand tobacco smoke exposure: Yes Smoking end date: 07/03/20 Alcohol intake: never Substance use: current Substance use type: marijuana Other substance usage details: medical Living arrangements: with family Additional living arrangements comments: Resides in [place] with his . Additional occupation/education comments: Unemploye
[2021-08-08] MEDS: ceFAZolin 2 GM/D5W 50 ML 2 GM/50 ML BAG IVPB (08:38)
[2021-08-08] MEDS: BUPIVACAINE HCL 0.5% PF 30 ML VIAL INFILTRATE (09:03)
[2021-08-08 09:55] VITALS: BP 123/74; PULSE 94; RESP 16; TEMP 36.2; O2SAT 96
--- NOTE | 2021-08-08 10:07 | W.PM.PROC2 ---
Procedure Note - Detailed Date of Procedure 08/08/21 Pre-op Diagnosis Rt Carpal Tunnel Syn, Rt Cubital Tunnel Syn, right ulnar nerve compression at the wrist Post-op Diagnosis same Procedure Performed Right cubital tunnel release, right ulnar nerve and carpal tunnel release Surgeon Gonzalez Sellers MD Language And Literature Division Chair 1st rn first assistant Anesthesia general Indications 56-year-old gentleman with right arm pain, numbness and tingling. EMG nerve conduction studies shows ulnar nerve compression at the elbow and the wrist as well as median nerve compression at the carpal tunnel. Patient presents for operative treatment. Description of Procedure After informed consent was given, the operative extremity was marked in the preoperative holding area. Intravenous antibiotics were given. The patient was taken to the operating room and underwent general anesthesia by the anesthesia team. A time-out was performed confirming patient, procedure, and operative site. Local infiltrate at the carpal tunnel, ulnar tunnel and cubital tunnel was done with 0.5% marcaine. Prepping and draping was done using chloraprep skin solution with usual surgical sterile technique. Anatomic landmarks marked on skin. Hand was exsanguinated and arm tourniquet inflated to 225mmHg. Cubital tunnel was mapped out an incision made with a 15 blade knife. Hemostasis controlled electrocautery. Dissection then carried down to the retinaculum which was divided in line with the skin incision starting proximally and proceeding distally. The ulnar nerve was identified and protected during the released. There was tight and scarred fascia from the medial epicondyle and just distal to this. Branches of the ulnar nerve were protected. Good release was visualized proximally and distally. Elbow was then taken through range of motion and the nerve was noted to be stable in the groove. Wound thoroughly irrigated and subcutaneous tissue repaired with 3-0 Monocryl interrupted suture. Skin repaired with 4-0 nylon running suture. Incision was made with #15 blade knife in skin crease on volar palm on the ulnar aspect.. Hemostasis was achieved with electrocautery. Careful dissection was carried down to Guyon's canal in the ulnar nerve was released under direct visualization. Sensory branch to the palm was identified and protected. Ulnar nerve was then mobilized and using the hook of the hamate bone as a reference point the fascia overlying the deep motor branch of the ulnar nerve was released. Carpal tunnel was then addressed. Careful dissection was carried down to the transverse carpal ligament. Retractors were placed. Ligament overlying median nerve was incised in line with skin incision using [place] blade on the ulnar aspect to expose the carpal tunnel. Proximal and distal release was done with metzenbaum scissors under direct visualization. Mosquito clamp was placed deep to ligament to protect nerve during release. The nerve was inspected and noted to be intact with mild flattening. There was moderate synovitis present which was excised. Tendons had good excursion. The wound was thoroughly irrigated with antibiotic solution. The skin was closed with 4-0 nylon interrupted suture. A sterile dressing was applied. Good capillary refill in the fingers and thumb was noted. The patient was transported to the recovery room in stable condition. All sponge, needle, instrument counts were correct at the end of the case. Estimated Blood Loss 5 Tourniquet Time 50 Drains No Packing No Pathology none sent Complications None Condition stable Disposition PACU
[2021-08-08 10:10] VITALS: BP 116/63; PULSE 77; RESP 18; O2SAT 97
[2021-08-08 10:25] VITALS: BP 131/80; PULSE 86; RESP 18; O2SAT 98
[2021-08-08 10:35] VITALS: BP 121/81; PULSE 77; RESP 16
[2021-08-08 11:05] VITALS: BP 108/58; PULSE 74; RESP 16
[2021-08-08] MEDS: oxyCODONE HCL (*CRX) 5 MG TAB IR PO (11:19)
== END 2021-08-08 11:44 | disposition home or self-care (01) ==
PROVIDERS: PCP Internal Medicine; Visit Provider Orthopaedic Surgery
PROC: (CPT 64721; principal; 2021-08-08 08:30)
PROC: (CPT 64721; 2021-08-08 08:30)
DX: G56.01 Carpal tunnel syndrome, right upper limb (principal); G56.21 Lesion of ulnar nerve, right upper limb; I10 Essential (primary) hypertension; K21.9 Gastro-esophageal reflux disease without esophagitis; E78.2 Mixed hyperlipidemia; F41.9 Anxiety disorder, unspecified; Z79.891 Long term (current) use of opiate analgesic; F17.210 Nicotine dependence, cigarettes, uncomplicated; F12.90 Cannabis use, unspecified, uncomplicated
CPT/HCPCS: 64721; 64718; A4565; A9270; J0690; J1100; J1170; J1885; J2250; J2405; J2704; J3010; J7120

== ENCOUNTER 2021-08-11 06:31 | Emergency (ER) | payer MEDICARE, MEDICAID, SELFPAY ==
[2021-08-11 06:44] VITALS: BP 109/69; PULSE 80; RESP 18; TEMP 36.8; O2SAT 100
--- NOTE | 2021-08-11 07:09 | ED.WOUNDLAC ---
HPI - Wound/Laceration General Chief Complaint: Wound/Laceration Stated Complaint: Surgery complication Time Seen by Provider: 08/11/21 07:08 Source: patient Mode of arrival: ambulatory Limitations: no limitations History of Present Illness HPI narrative: The patient is a 56-year-old male presenting for evaluation of wound evaluation. Patient with carpal tunnel and antecubital release surgery by Dr. Sellers on August 08. Patient here stating that his right elbow wound is open. Patient states he has restless leg syndrome and moves throughout the night, he is unsure what else would have opened the wound. States that he thinks his sutures popped open. He denies any heavy bending or lifting. No recent injury. States he has not been touching the sutures. Patient denies any significant pain. States that he has tried calling multiple people and has talked to 12 people over the first 24 hours regarding this and does not want answer any my questions. When asked that the patient contact her Dr. Sellers's office regarding the wound, states that I talk to numerous people, no I have not contacted Dr. Sellers. He denies fever, chills. He is able to move the right elbow. He denies any current numbness. No significant redness. No drainage from the wound. Related Data Home Medications Medication Instructions Recorded Confirmed methocarbamol 500 mg tablet 500 mg PO ONCE PRN tablet 11/26/20 07/30/21 multivitamin 1 tablet PO DAILY 05/16/21 08/08/21 Allergies Allergy/AdvReac Type Severity Reaction Status Date / Time No Known Allergies Allergy Verified 08/11/21 06:35 Review of Systems Review of Systems: CONSTITUTIONAL: Denies fever CARDIOVASCULAR: Denies chest pain RESPIRATORY: Denies cough or dyspnea. GASTROINTESTINAL: Denies abdominal pain SKIN: Denies rash, reports sutures have popped open from right elbow wound MUSCULOSKELETAL: Denies back pain NEUROLOGIC: Denies headache PMFSH Past Medical History Medical History Abdominal pain Anesthesia complication Anxiety Carpal tunnel syndrome, right Chronic low back pain Chronic prescription opiate use Chronic, continuous use of opioids Cubital tunnel syndrome on right Essential (primary) hypertension Gastroesophageal reflux disease without esophagitis Guyon syndrome History of cerebral hemorrhage History of intussusception 2011 HLD (hyperlipidemia) Hospitalization within last 30 days HTN (hypertension) Mixed hyperlipidemia Nausea & vomiting Osteoarthritis of cervical spine Peptic ulcer Personal history of nicotine dependence Stomach ulcer Ulnar neuropathy Vision loss Surgical History Surgical History History of appendectomy 1980 History of facial surgery 2000 Family History Family History Father Family history of diabetes mellitus in first degree relative Family history of heart disease in male family member before age 55 Family history of malignant neoplasm Mother Family history of diabetes mellitus in first degree relative Family history of heart disease in male family member before age 55 Family history of malignant neoplasm Sibling Family history of diabetes mellitus in first degree relative Family history of heart disease in male family member before age 55 Other Diabetes mellitus HLD (hyperlipidemia) Heart disease Hypertension Lung cancer Lung disease Social History Social History Social History: Surrogate decision maker: Veronica Garcias, . Code status: Full code. Smoking packs per day: 0.75 Smoking cigarettes per day: 15.0 Years smoked: 10 Smoking pack-years: 7.50 Smoking status: Current every day smoker Tobacco type: smokeless tobacco Smokeless tobacco user: other Second hand tobacco s
[2021-08-11 07:30] VITALS: BP 101/67; PULSE 67; O2SAT 94
[2021-08-11 08:15] VITALS: BP 101/67; PULSE 76; RESP 18; O2SAT 96
== END 2021-08-11 08:17 | disposition home or self-care (01) ==
PROVIDERS: Emergency Provider Emergency Medicine; PCP Internal Medicine
DX: T81.31XA Disruption of external operation (surgical) wound, not elsewhere classified, initial encounter (principal); I10 Essential (primary) hypertension; K21.9 Gastro-esophageal reflux disease without esophagitis; E78.2 Mixed hyperlipidemia; M47.812 Spondylosis without myelopathy or radiculopathy, cervical region; Z87.11 Personal history of peptic ulcer disease; Z77.22 Contact with and (suspected) exposure to environmental tobacco smoke (acute) (chronic)
CPT/HCPCS: 99282

== ENCOUNTER 2021-08-13 00:42 | Day surgery (SDC) | payer MEDICARE, MEDICAID, SELFPAY ==
--- NOTE | 2021-08-12 13:54 | WPDANESEPPF ---
Anes - Initial Pre Proc Eval Procedure: Operation Date: 08/13/21 11:00 Proposed Procedures p Incision and Drainage Right Elbow - Gonzalez Sellers MD Date/Time: 08/12/21 13:54 Surgeon: Gonzalez Sellers MD Pre Op Diagnosis: right elbow wound dehiscence Patient Data Age: 56 Gender: M Height: Weight: Allergies Allergy/AdvReac Type Severity Reaction Status Date / Time No Known Allergies Allergy Verified 08/12/21 14:03 Home Medications Medication Instructions Recorded Confirmed Type enalapril maleate 20 mg tablet 20 mg PO DAILY #180 tablet 12/03/20 08/13/21 Rx simvastatin 80 mg tablet See Rx Instructions .ROUTE 12/03/20 08/13/21 Rx .COMPLEX #90 tablet pantoprazole 40 mg tablet,delayed 40 mg PO QAM #30 tablet 04/25/21 08/13/21 Rx release cyclobenzaprine 10 mg PO TID PRN #90 tablet 05/04/21 08/12/21 Rx multivitamin 1 tablet PO DAILY 05/16/21 08/13/21 History clonazepam 2 mg tablet 2 mg PO BID #60 tablet 08/08/21 08/13/21 Rx ondansetron HCl [Zofran] 4 mg PO Q8H PRN #10 tablet 08/08/21 08/12/21 Rx oxycodone-acetaminophen 1 tablet PO Q6H PRN #30 tablet 08/08/21 08/13/21 Rx sennosides-docusate sodium [Senna 1 tab-cap PO HS #14 tablet 08/08/21 08/12/21 Rx with Docusate Sodium] Patient hx anesthesia problems: none Family hx anesthesia problems: none Results Review: All pre-operative results and documents have been reviewed as part of the pre-operative evaluation. [facility] Past Medical History Medical History (Updated 08/12/21 @ 13:31 by Gonzalez Sellers MD) Abdominal pain Anesthesia complication Anxiety Carpal tunnel syndrome, right Chronic low back pain Chronic prescription opiate use Chronic, continuous use of opioids Cubital tunnel syndrome on right Encounter for postoperative care Essential (primary) hypertension Gastroesophageal reflux disease without esophagitis Guyon syndrome History of cerebral hemorrhage History of intussusception 2011 HLD (hyperlipidemia) Hospitalization within last 30 days HTN (hypertension) Mixed hyperlipidemia Nausea & vomiting Osteoarthritis of cervical spine Peptic ulcer Personal history of nicotine dependence Postoperative wound dehiscence Stomach ulcer Ulnar neuropathy Vision loss Surgical History Surgical History History of appendectomy 1980 History of facial surgery 2000 Family History Family History Father Family history of diabetes mellitus in first degree relative Family history of heart disease in male family member before age 55 Family history of malignant neoplasm Mother Family history of diabetes mellitus in first degree relative Family history of heart disease in male family member before age 55 Family history of malignant neoplasm Sibling Family history of diabetes mellitus in first degree relative Family history of heart disease in male family member before age 55 Other Diabetes mellitus HLD (hyperlipidemia) Heart disease Hypertension Lung cancer Lung disease Social History Social History Social History: Surrogate decision maker: Veronica Garcias, . Code status: Full code. Years smoked: 20 Smoking status: Current every day smoker Tobacco type: cigarettes Second hand tobacco smoke exposure: Yes Alcohol intake: never Substance use: current Substance use type: marijuana Other substance usage details: medical Living arrangements: with family Additional occupation/education comments: Unemployed/Disabled Gender identity (if verbalized by the patient): Male Spiritual care concerns: No Anes - Eval Final PreProcedure Day of Procedure 08/12/21 13:54 Patient weight: obese Heart: regular rate and rhythm Lungs: clear to auscultation and normal air movement Airway: Mallampati scale class II Neurological: alert and
[2021-08-12 14:04] VITALS: BMI 26.3
--- NOTE | 2021-08-12 14:11 | PC.NURSE ---
Report to the Outpatient Waiting Room, entrance under the green pavilion located off [facility], at time 0900 on date 08/13/21. OR Time: 1100. - You will be asked a series of questions to screen for COVID 19 for your protection. - A mask is required within the hospital. - No visitors are allowed at this time. Preoperative COVID Testing Requirements: No COVID Test needed if: (proof is required; if not received patient will have Rapid Test prior to entry) - Patient has received COVID Vaccine at least 14 days prior to procedure date or - Patient has positive COVID test result within last 90 days of surgery date. COVID Test needed if above criteria is not met Patients may have clear liquids (water, carbonated beverages, clear teas, apple juice) until 3 hours prior to surgery with a maximum of 20 ounces. - No food from midnight until time of surgery Take the following medications with a SIP of water the morning of surgery: CLONAZEPAM, PAIN PILL (IF NEEDED) Medications to discontinue per physician: VITAMINS/SUPPLEMENTS Date to take last dose: NOW Please no make-up, nail ukrainian, hairspray, perfume, deodorant, or body powder the day of surgery. No jewelry (including any body piercings) or valuables the day of surgery, leave them at home. Please take a shower or bath the night before, or the morning of, surgery with an antibacterial soap. Wear comfortable, loose fitting clothing. - Jewelry must be removed prior to entering the operating room. Rings and piercings that are not removed may be cut off. - The hospital will not accept responsibility for valuables. - Please leave all valuables, including medications, at home the day of surgery. If you are going home after surgery, a licensed utility worker driver must drive you home. - NO public transportation without another adult. - We recommend that an adult stay with you for 24 hours following discharge. - We also recommend that you do not drive, make important decision, drink alcoholic beverages, or take any drugs that were not prescribed by your health care provider for at least 24 hours after your discharge time. Follow any additional instructions given to you from your surgeon. Telephone instructions given to HALEIGH BLANCO and asked if any additional questions and then verbalized understanding. Patient advised to call surgeon office or pre surgery nurse liaison [phone] if any additional questions.
[2021-08-13] VITALS (9 sets, daily range): BP systolic 100–121; BP diastolic 68–81; PULSE 60–95; RESP 8–16; TEMP 36.5–36.8; O2SAT 92–97
[2021-08-13] MEDS: ACETAMINOPHEN 500 MG TABLET 1000 MG PO (09:14)
[2021-08-13] MEDS: KETOROLAC 15 MG/ML VIAL (*BKC) IV PUSH (09:24)
[2021-08-13] MEDS: LACTATED RINGERS 1,000 ML 30 ML IV CONT (09:24)
--- NOTE | 2021-08-13 11:12 | WPDHPUPDATE1 ---
History and Physical Update Update Date/Time: 08/13/21 11:12 History and Physical has been reviewed, including an updated exam of the patient. There are NO changes in the patient's condition. Risks, benefits, and alternatives have been discussed and questions answered. Patient agrees to proceed with procedure.
[2021-08-13] MEDS: ceFAZolin 2 GM/D5W 50 ML 2 GM/50 ML BAG IVPB (11:25)
--- NOTE | 2021-08-13 12:14 | P.OP_ITS ---
Procedure Note - Detailed Date of Procedure 08/13/21 Pre-op Diagnosis right elbow wound dehiscence Post-op Diagnosis same Procedure Performed Debridement right elbow complicated postoperative wound dehiscence with intermediate closure. Surgeon Gonzalez Sellers MD Insurance Follow Up Rep assistant purchasing manager Anesthesia general Indications 56-year-old who is 5 days status post right elbow cubital tunnel release. Patient has had a dehiscence of the wound through the fascia. Presents now for debridement and closure. Description of Procedure Patient identified in the preoperative holding. Informed consent given. Operative extremity marked. Patient received intravenous antibiotics. Patient brought to the operating room where underwent general anesthetic by anesthesia team. Positioned supine on operating room table. Time-out performed confirming the patient, site of the surgery and the plan. Right arm prepped and draped usual sterile surgical fashion using a Betadine prep solution. There was complete dehiscence of the cubital tunnel wound as well as the subcutaneous fascial closure with exposure of the nerve and medial epicondyle. This was thoroughly irrigated with bacitracin solution. No signs of infection were encountered. The ulnar nerve was inspected and noted to be intact without signs of injury. No active bleeding was noted. Local anesthetic with 0.5% Marcaine plain. Wound was then closed in layers with 3-0 Monocryl interrupted suture for the deep and subcutaneous tissue. The skin was then closed with 3-0 Prolene interrupted suture. Sterile dressing applied. In order to protect the repair a bulky dressing and splint was then applied. The patient was then woken from anesthesia, extubated and taken to the recovery room in stable condition. All sponge, needle, instrument counts were correct at the end of the case. Implants None Estimated Blood Loss 5 Tourniquet Time 0 Drains No Packing No Pathology none sent Complications None Condition stable Disposition PACU
[2021-08-13] MEDS: oxyCODONE HCL (*CRX) 5 MG TAB IR PO (14:02)
== END 2021-08-13 14:30 | disposition home or self-care (01) ==
PROVIDERS: PCP Internal Medicine; Visit Provider Orthopaedic Surgery
PROC: (CPT 13160; principal; 2021-08-13 11:00)
DX: T81.31XA Disruption of external operation (surgical) wound, not elsewhere classified, initial encounter (principal); Y83.8 Other surgical procedures as the cause of abnormal reaction of the patient, or of later complication, without mention of misadventure at the time of the procedure; I10 Essential (primary) hypertension; E78.2 Mixed hyperlipidemia; K21.9 Gastro-esophageal reflux disease without esophagitis; F41.9 Anxiety disorder, unspecified; Z79.891 Long term (current) use of opiate analgesic; F17.210 Nicotine dependence, cigarettes, uncomplicated; F12.90 Cannabis use, unspecified, uncomplicated
CPT/HCPCS: 13160; A9270; J0690; J1100; J1885; J2405; J2704; J3010; J7120

== ENCOUNTER 2022-02-09 18:10 | Observation (INO) | payer OTHER, MEDICAID, SELFPAY ==
--- NOTE | ~2022-02-09 | CT_ITS ---
EXAMINATION: CT abdomen pelvis w con DATE: 02/09/2022 19:29 INDICATION: Patient taking: Prominent for colonoscopy tomorrow. Vomiting. History of ulcer. History o f appendectomy. TECHNIQUE: Computed tomography (CT) of the abdomen and pelvis was performed with 100 cc Omnipaque 300 intravenous contrast. The dose-length product was 567.13 mGy-cm. Automated exposure control and iter ative reconstruction technique were employed. COMPARISON: CT dated 05/03/2021 FINDINGS: Lung bases are unremarkable. Heart size normal. No significant pleural or pericardial effus ion. Small hiatal hernia. No significant vascular abnormality. No lymphadenopathy. No free air or free fluid. There is moderate fluid in the small bowel and colon. No obstruction. The liver, spleen, pancreas, adrenal glands and left kidney are unremarkable. There is a subcentimeter hypodensity of the right kidney, most likely b enign cysts. No abnormal pelvic masses or fluid collections. No acute osseous abnormality. Mild lumbar spondylosis . IMPRESSION: 1. No acute abdominal abnormality. Reviewed, dictated and finalized at location A.
[2022-02-09 18:14] VITALS: BP 127/82; PULSE 115; RESP 20; TEMP 37; O2SAT 96
--- NOTE | 2022-02-09 18:38 | ED.NAVMDI ---
HPI - Nausea/Vomiting/Diarrhea General Chief complaint: Nausea/Vomiting/Diarrhea Stated complaint: vomiting Time Seen by Provider: 02/09/22 18:37 Source: patient and family Mode of arrival: ambulatory Limitations: no limitations History of Present Illness HPI Narrative: Patient is 57 years old white male presents to the ED because of severe vomiting and abdominal pain started few hours prior to arrival to the emergency room. The is telling me that patient is scheduled for GI work-up 2 mg, had 6 laxative last night, for appointment today, at 3 PM today started colonoscopy prep subsequently started having severe nausea and frequent vomiting with diffuse abdominal pain. Patient reports abdominal pain similar to that for the last 20 years, possible gastric ulcer, Related Data Home Medications Medication Instructions Recorded Confirmed multivitamin 1 tablet PO DAILY 05/16/21 01/24/22 Allergies Allergy/AdvReac Type Severity Reaction Status Date / Time No Known Allergies Allergy Verified 01/24/22 13:16 Review of Systems Review of Systems: All systems reviewed & are unremarkable except as noted in HPI and below PMFSH Past Medical History Medical History Abdominal pain Anesthesia complication Anxiety Carpal tunnel syndrome, right Chronic low back pain Chronic prescription opiate use Chronic, continuous use of opioids Cubital tunnel syndrome on right Encounter for postoperative care Essential (primary) hypertension Gastroesophageal reflux disease without esophagitis Guyon syndrome History of cerebral hemorrhage History of intussusception 2011 HLD (hyperlipidemia) Hospitalization within last 30 days HTN (hypertension) Mixed hyperlipidemia Nausea & vomiting Osteoarthritis of cervical spine Peptic ulcer Personal history of nicotine dependence Postoperative wound dehiscence Retained suture Stomach ulcer Ulnar neuropathy Vision loss Surgical History Surgical History History of appendectomy 1979 History of facial surgery 2000 Family History Family History Father Family history of diabetes mellitus in first degree relative Family history of heart disease in male family member before age 55 Family history of malignant neoplasm Mother Family history of diabetes mellitus in first degree relative Family history of heart disease in male family member before age 55 Family history of malignant neoplasm Sibling Family history of diabetes mellitus in first degree relative Family history of heart disease in male family member before age 55 Other Diabetes mellitus HLD (hyperlipidemia) Heart disease Hypertension Lung cancer Lung disease Social History Social History Social History: Surrogate decision maker: Veronica Garcias, . Code status: Full code. Years smoked: 20 Smoking status: Current every day smoker Tobacco type: cigarettes Second hand tobacco smoke exposure: Yes Alcohol intake: never Substance use: current Substance use type: marijuana Other substance usage details: SMOKES MARIJUANA DAILY Additional occupation/education comments: Unemployed/Disabled Gender identity (if verbalized by the patient): Male Spiritual care concerns: No Exam Narrative: General appearance: Well-developed, well-nourished, restless, anxious, laying down flat with intermittent screaming because of the abdominal pain Skin: Pale Head: Normocephalic, nontraumatic Eyes: Clear conjunctiva ENT: Oropharynx normal, ears normal, nose normal Neck: Supple, nontender Chest and respiratory: Airway patent, no respiratory distress, no accessory muscle use Heart: Regular rate/rhythm Abdomen: Soft, diffuse tenderness, no organomegaly, hyperactive bowel sounds Vascular: Normal peripheral puls
[2022-02-09] MEDS: ONDANSETRON INJ 4 MG/2 ML VIAL 8 MG (18:41)
[2022-02-09] MEDS: SODIUM CHLORIDE 0.9% IV 1,000 ML 999 ML (18:42)
[2022-02-09 18:46] VITALS: O2SAT 100
[2022-02-09 18:47] VITALS: BP 129/74; O2SAT 100
[2022-02-09] MEDS: HYDROmorphone HCL INJ (*CRX) 1 MG/ML SYR 0.5 MG IV PUSH (18:54)
[2022-02-09 19:01] LABS: Basophils Percent Auto 0.3 % (0.2-1.2); Hematocrit 49.2 % (42.0-52.0); Hemoglobin 16.9 g/dL (14.0-18.0); Immature Granulocyte Absolute 0.06 K/mm3 (0.00-0.031); Immature Granulocyte Percent A 0.4 % (0-0.5); Lymphocytes Absolute Auto 2.09 K/mm3 (0.9-3.2); Lymphocytes Percent Auto 14.2 % (18.3-44.2); Mean Corpuscular HGB Conc 34.3 g/dl (32-36); Mean Corpuscular Hemoglobin 31.1 pg (26-34); Mean Corpuscular Volume 90.6 fl (80-100); Mean Platelet Volume 9.8 fl (7.4-10.4); Monocytes Absolute Auto 0.4 K/mm3 (0.1-0.6); Monocytes Percent Auto 2.6 % (2.6-8.5); Neutrophils Absolute Auto 12.2 K/mm3 (1.3-6.7); Neutrophils Percent Auto 82.5 % (45.5-73.1); Platelet Count Result 275 k/mm3 (150-375); Red Blood Count 5.43 M/mm3 (4.6-6.20); Red Cell Distribution Width 12.2 % (11.5-14.5); White Blood Count 14.8 K/mm3 (4.5-10.0)
[2022-02-09 19:10] LABS: Alanine Aminotransferase 36 U/L (6-50); Albumin Level 5.1 g/dL (3.5-5.1); Alkaline Phosphatase 96 U/L (38-126); Anion Gap 14 mmol/L (8-16); Aspartate Amino Transferase 28 U/L (17-59); Bilirubin,Total 0.9 mg/dL (0.2-1.3); Blood Urea Nitrogen 15 mg/dL (9-20); Calcium 9.4 mg/dL (8.4-10.2); Carbon Dioxide 20 mmol/L (22-30); Chloride 101 mmol/L (98-107); Estimated CRCL calculation 87 ml/min; Estimated Glomerular Filt Rate > 60; Glucose 158 mg/dL (65-110); Lipase 195 U/L (23-300); Potassium 3.7 mmol/L (3.4-5.0); Sodium 135 mmol/L (137-145)
--- NOTE | 2022-02-09 19:10 | PC.NURSE ---
Patient report given to MARIA DEL ROSARIO Arevalo. All questions answered and care of patient transferred .
[2022-02-09 19:58] LABS: Appearance Urine Clear (Clear); Bilirubin Urine Negative (Negative); Blood Urine Trace-lysed (Negative); Color Urine Yellow (Yellow); Glucose Urine UA Negative (Negative); Ketones Urine 1+ mg/dL (Negative); Leukocyte Esterase Ur Negative LEU/UL (Negative); Nitrate Urine Negative (Negative); Protein Urine 1+ mg/dL (Negative); Specific Grav Ur 1.015 (1.001-1.035); Urobilinogen Urine 0.2 mg/dL (<2.0)
[2022-02-09 20:00] LABS: Mucus Urine Few /lpf; WBC Urine 0-3 /hpf
[2022-02-09 20:01] LABS: Add Urine Microscopic? YES
[2022-02-09] MEDS: LORazepam INJ (*CRX) 2 MG/ML VIAL 1 MG IV PUSH (20:04)
[2022-02-09] MEDS: METOCLOPRAMIDE HCL INJ 10 MG/2 ML VIAL IV PUSH (20:04)
[2022-02-09] MEDS: diphenhydrAMINE HCl INJ 50 MG/ML VIAL IV PUSH (20:04)
--- NOTE | 2022-02-09 22:00 | PM.IMHP ---
H&P: HPI History of Present Illness Date/Time: 02/09/22 22:00 Chief Complaint: Nausea with vomiting Narrative: 57-year-old male with past medical history significant for hypertension, hyperlipidemia, GERD with peptic ulcer disease S presenting with nausea, vomiting and abdominal pain while doing prepped for colonoscopy scheduled for tomorrow. Patient also has EGD for tomorrow as well. Both these are being scheduled to evaluate for his chronic abdominal pain. He denies any fevers or chills. No blood in his stool or vomit. No headaches or vision changes. No lower extremity edema. Labs and imaging in the ER were essentially normal. Plan is to consult GI and continue with testing as scheduled tomorrow, anticipate discharge afterwards. Review of Systems Review of Systems: 12 point review of systems was assessed and was negative except as noted in the HPI [facility] Past Medical History Medical History Abdominal pain Anesthesia complication Anxiety Carpal tunnel syndrome, right Chronic low back pain Chronic prescription opiate use Chronic, continuous use of opioids Cubital tunnel syndrome on right Encounter for postoperative care Essential (primary) hypertension Gastroesophageal reflux disease without esophagitis Guyon syndrome History of cerebral hemorrhage History of intussusception 2012 HLD (hyperlipidemia) Hospitalization within last 30 days HTN (hypertension) Mixed hyperlipidemia Nausea & vomiting Osteoarthritis of cervical spine Peptic ulcer Personal history of nicotine dependence Postoperative wound dehiscence Retained suture Stomach ulcer Ulnar neuropathy Vision loss Surgical History Surgical History History of appendectomy 1979 History of facial surgery 2000 Family History Family History Father Family history of diabetes mellitus in first degree relative Family history of heart disease in male family member before age 55 Family history of malignant neoplasm Mother Family history of diabetes mellitus in first degree relative Family history of heart disease in male family member before age 55 Family history of malignant neoplasm Sibling Family history of diabetes mellitus in first degree relative Family history of heart disease in male family member before age 55 Other Diabetes mellitus HLD (hyperlipidemia) Heart disease Hypertension Lung cancer Lung disease Social History Social History Social History: Surrogate decision maker: Veronica Garcias, . Code status: Full code. Years smoked: 20 Smoking status: Current every day smoker Second hand tobacco smoke exposure: Yes Alcohol intake: never Substance use: current Substance use type: marijuana Other substance usage details: SMOKES MARIJUANA DAILY Additional occupation/education comments: Unemployed/Disabled Gender identity (if verbalized by the patient): Male Spiritual care concerns: No Meds Home Medications and Allergies Home Medications Medication Instructions Recorded Confirmed Type enalapril maleate 20 mg tablet 20 mg PO DAILY #180 tabs 12/03/20 01/24/22 Rx multivitamin 1 tablet PO DAILY 05/16/21 01/24/22 History ondansetron HCl 4 mg tablet 4 mg PO Q8H PRN nausea and 08/08/21 01/24/22 Rx (Zofran) vomiting #10 tabs oxycodone-acetaminophen 7.5 mg-325 1 tablet PO Q6H PRN Pain #30 tabs 08/08/21 01/24/22 Rx mg tablet pantoprazole 40 mg tablet,delayed 40 mg PO QAM #90 tabs 09/09/21 01/24/22 Rx release clonazepam 2 mg tablet 2 mg PO BID #60 tabs 10/16/21 01/24/22 Rx simvastatin 80 mg tablet See Rx Instructions .Route 11/18/21 01/24/22 Rx .COMPLEX #90 tabs cyclobenzaprine 10 mg tablet 10 mg PO TID PRN Muscle Spasm #90 11/28/21 01/24/22 Rx tabs sodium sul 1.479 gram-pot
[2022-02-09 22:01] VITALS: BP 140/59; PULSE 68; RESP 18; O2SAT 97
[2022-02-09] MEDS: ONDANSETRON INJ 4 MG/2 ML VIAL IV PUSH (22:44)
[2022-02-09 22:45] VITALS: BP 156/97; PULSE 58; RESP 18; TEMP 36.8; O2SAT 100; BMI 26.4
[2022-02-09] MEDS: SODIUM CHLORIDE 0.9% IV 1,000 ML 150 ML IV CONT (23:01)
[2022-02-09] MEDS: DICYCLOMINE HCL INJ 20 MG/2 ML VIAL IM (23:13)
[2022-02-10] VITALS (7 sets, daily range): BP systolic 82–157; BP diastolic 52–78; PULSE 65–83; RESP 16–27; TEMP 36.2–37.1; O2SAT 95–98
[2022-02-10] MEDS: LORazepam INJ (*CRX) 2 MG/ML VIAL 1 MG IV PUSH (00:43)
--- NOTE | 2022-02-10 01:16 | ADMGEN ---
This patient, Doc Garcias, was admitted to 3 [facility] Surg Room 325-01. Patient/family oriented to hospital policies and general routines including ID bracelet, bed and alarms, visiting hours, pain management, procedures, bathroom and other care routines, personal items, smoking policy, room service/diet, and visiting hours. Information on how to activate the Rapid Response Team has been discussed. Patient/Family are encouraged to report perceived risks to care and to ask questions if they do not understand what they are told or what they should do.
[2022-02-10 06:35] LABS: Basophils Percent Auto 0.1 % (0.2-1.2); Hematocrit 44.2 % (42.0-52.0); Hemoglobin 15.2 g/dL (14.0-18.0); Immature Granulocyte Absolute 0.06 K/mm3 (0.00-0.031); Immature Granulocyte Percent A 0.4 % (0-0.5); Lymphocytes Absolute Auto 3.53 K/mm3 (0.9-3.2); Lymphocytes Percent Auto 25.3 % (18.3-44.2); Mean Corpuscular HGB Conc 34.4 g/dl (32-36); Mean Corpuscular Hemoglobin 31.2 pg (26-34); Mean Corpuscular Volume 90.8 fl (80-100); Mean Platelet Volume 9.4 fl (7.4-10.4); Monocytes Absolute Auto 0.7 K/mm3 (0.1-0.6); Monocytes Percent Auto 4.7 % (2.6-8.5); Neutrophils Absolute Auto 9.7 K/mm3 (1.3-6.7); Neutrophils Percent Auto 69.5 % (45.5-73.1); Platelet Count Result 259 k/mm3 (150-375); Red Blood Count 4.87 M/mm3 (4.6-6.20); Red Cell Distribution Width 12.1 % (11.5-14.5); White Blood Count 13.9 K/mm3 (4.5-10.0)
[2022-02-10] MEDS: SODIUM CHLORIDE 0.9% IV 1,000 ML 150 ML IV CONT (06:47)
[2022-02-10 06:48] LABS: Anion Gap 11 mmol/L (8-16); Blood Urea Nitrogen 12 mg/dL (9-20); Calcium 8.7 mg/dL (8.4-10.2); Carbon Dioxide 22 mmol/L (22-30); Chloride 103 mmol/L (98-107); Estimated CRCL calculation 87 ml/min; Estimated Glomerular Filt Rate > 60; Glucose 116 mg/dL (65-110); Potassium 3.7 mmol/L (3.4-5.0); Sodium 136 mmol/L (137-145)
[2022-02-10] MEDS: MAGNESIUM CITRATE 300 ML BTL PO (06:53)
[2022-02-10] MEDS: DICYCLOMINE HCL INJ 20 MG/2 ML VIAL IM (07:43)
[2022-02-10] MEDS: ONDANSETRON INJ 4 MG/2 ML VIAL IV PUSH ×2 (07:49→10:33)
--- NOTE | 2022-02-10 08:02 | WPDGICN ---
Assessment and Plan Assessment and plan (1) Intractable cyclical vomiting: Code(s): R11.15 - Cyclical vomiting syndrome unrelated to migraine Status: Acute Assessment and Plan: EGD with possible biopsy or dilatation or cautery. (2) Colon cancer screening: Code(s): Z12.11 - Encounter for screening for malignant neoplasm of colon Status: Acute Assessment and Plan: Colonoscopy with possible biopsy or polypectomy or cautery or injection of substances. GI Consult Note Consult date/time: 02/10/22 08:02 HPI: Doc Garcias is a 57 year old male with a past medical history of chronic back pain, anxiety, ulcer disease, hyperlipidemia, hypertension, history of intussusception, hyperlipidemia, neuropathy, appendectomy, and right ulnar repair.? He states around 22 years ago due to symptoms of hematemesis and bloody stools he was diagnosed with intussusception Which resolved spontaneously. and underwent EGD and colonoscopy with Dr. Gallardo at [facility].? He was told he had ulcers in the stomach and it would never heal.? He does report having colon polyps at that time as well.? After he was told he had stomach ulcers he had was on ranitidine up until it was taken off the market.? He is now on pantoprazole 40 mg daily for the last 2 years.? He states if he misses a dose he will have epigastric burning and reflux with associated nausea and vomiting acid bile. He presented to the emergency room yesterday evening with persistent vomiting. He states that if she misses even 1 day of medication for his ulcers he will have symptoms like this. He had started his prep and 1 hour later began vomiting severely. Overnight he began feeling better and was able to finish prep. He denies abdominal pain at present. Review of Systems Review of Systems: All systems reviewed & are unremarkable except as noted in HPI and below PMFSH Past Medical History Medical History Abdominal pain Anesthesia complication Anxiety Carpal tunnel syndrome, right Chronic low back pain Chronic prescription opiate use Chronic, continuous use of opioids Cubital tunnel syndrome on right Encounter for postoperative care Essential (primary) hypertension Gastroesophageal reflux disease without esophagitis Guyon syndrome History of cerebral hemorrhage History of intussusception 2011 HLD (hyperlipidemia) Hospitalization within last 30 days HTN (hypertension) Mixed hyperlipidemia Nausea & vomiting Osteoarthritis of cervical spine Peptic ulcer Personal history of nicotine dependence Postoperative wound dehiscence Retained suture Stomach ulcer Ulnar neuropathy Vision loss Surgical History Surgical History History of appendectomy 1980 History of facial surgery 2000 Family History Family History Father Family history of diabetes mellitus in first degree relative Family history of heart disease in male family member before age 55 Family history of malignant neoplasm Mother Family history of diabetes mellitus in first degree relative Family history of heart disease in male family member before age 55 Family history of malignant neoplasm Sibling Family history of diabetes mellitus in first degree relative Family history of heart disease in male family member before age 55 Other Diabetes mellitus HLD (hyperlipidemia) Heart disease Hypertension Lung cancer Lung disease Social History Social History Social History: Surrogate decision maker: Veronica Garcias, . Code status: Full code. Years smoked: 20 Smoking status: Current every day smoker Second hand tobacco smoke exposure: Yes Alcohol intake: never Substance use: current Substance use type: marijuana Other substance usage deta
[2022-02-10] MEDS: PANTOPRAZOLE SODIUM IV 40 MG VIAL IV PUSH (08:39)
--- NOTE | 2022-02-10 09:36 | WPDANESEPPF ---
Anes - Initial Pre Proc Eval Procedure: Operation Date: 02/10/22 12:30 Proposed Procedures p Esophagogastroduodenoscopy & Screening Colonoscopy - Cuba Powers MD Date/Time: 02/10/22 09:36 Surgeon: Ella De La O DO Pre Op Diagnosis: Abdominal Pain, Vomiting Patient Data Age: 57 Gender: M Height: 1.83 m Weight: 88.3 kg Last Vital Signs Temp 36.7 C 02/10/22 06:00 Pulse 78 02/10/22 06:00 Resp 16 02/10/22 06:00 BP 124/64 02/10/22 06:00 Pulse Ox 95 02/10/22 06:00 O2 Del Method Room Air 02/09/22 18:14 Allergies Allergy/AdvReac Type Severity Reaction Status Date / Time No Known Allergies Allergy Verified 02/10/22 10:49 Home Medications Medication Instructions Recorded Confirmed Type enalapril maleate 20 mg tablet 20 mg PO DAILY #180 tabs 12/03/20 02/10/22 Rx multivitamin 1 tablet PO DAILY 05/16/21 02/10/22 History ondansetron HCl 4 mg tablet 4 mg PO Q8H PRN nausea and 08/08/21 02/10/22 Rx (Zofran) vomiting #10 tabs oxycodone-acetaminophen 7.5 mg-325 1 tablet PO Q6H PRN Pain #30 tabs 08/08/21 02/10/22 Rx mg tablet pantoprazole 40 mg tablet,delayed 40 mg PO QAM #90 tabs 09/09/21 02/10/22 Rx release clonazepam 2 mg tablet 2 mg PO BID #60 tabs 10/16/21 02/10/22 Rx simvastatin 80 mg tablet See Rx Instructions .Route 11/18/21 02/10/22 Rx .COMPLEX #90 tabs cyclobenzaprine 10 mg tablet 10 mg PO TID PRN Muscle Spasm #90 11/28/21 02/10/22 Rx tabs sodium sul 1.479 gram-potas ch See Rx Instructions PO PER PKG DIR 01/20/22 02/10/22 Rx 0.188 gram-magnes sul 0.225 gram #24 tabs tablet (Sutab) sennosides 8.6 mg-docusate sodium 50 tab-cap PO HS constipation 02/10/22 02/10/22 History 50 mg tablet (Senna with Docusate Sodium) Laboratory Tests 02/09/22 02/09/22 02/09/22 18:56 18:56 19:51 WBC 14.8 K/mm3 H K/mm3 (4.5-10.0) RBC 5.43 M/mm3 M/mm3 (4.6-6.20) Hgb 16.9 g/dL g/dL (14.0-18.0) Hct 49.2 % % (42.0-52.0) MCV 90.6 fl fl (80-100) MCH 31.1 pg pg (26-34) MCHC 34.3 g/dl g/dl (32-36) RDW 12.2 % % (11.5-14.5) Plt Count 275 k/mm3 k/mm3 (150-375) MPV 9.8 fl fl (7.4-10.4) Immature Gran % (Auto) 0.4 % % (0-0.5) Neut % (Auto) 82.5 % H % (45.5-73.1) Lymph % (Auto) 14.2 % L % (18.3-44.2) [place] % (Auto) 2.6 % % (2.6-8.5) Eos % (Auto) 0.0 % % (0-4.4) Baso % (Auto) 0.3 % % (0.2-1.2) Lymph # (Auto) 2.09 K/mm3 K/mm3 (0.9-3.2) [place] # (Auto) 0.4 K/mm3 K/mm3 (0.1-0.6) Eos # (Auto) 0.0 K/mm3 K/mm3 (0-0.3) Baso # (Auto) 0.0 K/mm3 K/mm3 (0.0-0.1) Abs Immat Gran (auto) 0.06 K/mm3 H K/mm3 (0.00-0.031) Absolute Neuts (auto) 12.2 K/mm3 H K/mm3 (1.3-6.7) Absolute Nucleated RBC 0.0 K/mm3 K/mm3 (0.0-0.012) Nucleated RBC % 0.0 % % (0.0-0.2) Sodium 135 mmol/L L mmol/L (137-145) Potassium 3.7 mmol/L mmol/L (3.4-5.0) Chloride 101 mmol/L mmol/L (98-107) Carbon Dioxide 20 mmol/L L mmol/L (22-30) Anion Gap 14 mmol/L mmol/L (8-16) BUN 15 mg/dL D mg/dL (9-20) Creatinine 0.90 mg/dL mg/dL (0.7-1.3) Estim Creat Clear Calc 87 ml/min ml/min Estimated GFR > 60 (59 - ) Glucose 158 mg/dL H mg/dL (65-110) Calcium 9.4 mg/dL mg/dL (8.4-10.2) Total Bilirubin 0.9 mg/dL mg/dL (0.2-1.3) AST 28 U/L U/L (17-59) ALT 36 U/L U/L (6-50) Alkaline Phosphatase 96 U/L U/L (38-126) Total Protein 9.0 g/dL H g/dL (6.3-8.2) Albumin 5.1 g/dL g/dL (3.5-5.1) Lipase 195 U/L U/L (23-300) Urine Color Yellow (Yellow) Urine Appearance Clear (Clear) Urine pH 7.0 (5.0-9.0) Ur Specific [place] 1
[2022-02-10] MEDS: HYDROmorphone HCL INJ (*CRX) 1 MG/ML SYR 0.5 MG IV PUSH (10:33)
[2022-02-10] MEDS: LACTATED RINGERS 1,000 ML 150 ML IV CONT (10:55)
--- NOTE | 2022-02-10 10:57 | PC.NURSE ---
at gi lab for procedure this morning
--- NOTE | 2022-02-10 11:52 | SUR.OPER ---
EGD: [id number] Colonoscopy began at 1152
--- NOTE | 2022-02-11 16:45 | PM.DS ---
DS: Admitting Diagnosis Discharge Date 02/10/22 Admitting Diagnosis nausea and vomiting DS: Discharge Diagnosis Discharge Diagnosis Plan gastritis, cyclic vomiting DS: Summary Hospital Course Reason for hospitalization: the patient has been having abdominal pain and began taking the prep for colonoscopy when he develop severe and protracted nausea and vomiting. He presented to emergency room with severe pain requiring narcotic analgesics and antiemetics. He was hospitalized for rehydration and treatment of his pain. Hospital Course: The patient was finally able to take more prep for his colonoscopy. The EGD and colonoscopy were done in the morning with the findings that he had gastritis. Was able to tolerate a diet and was discharged Status at Discharge Functional status at discharge: independent ambulation Time Spent with Patient Time attestation: Total time spent providing and/or coordinating discharge services: 15 minutes Exam Resp: Auscultation: clear to auscultation bilaterally Cardio: Rate: regular rate Rhythm: regular rhythm GI: GI Palp: Yes Soft to palpation and No Tenderness to palpation present (GI) Discharge Plan Discharge Attending physician on discharge: Bhargav Azevedo Consulting providers: Cuba Powers ; Manuelito Stephenson Discharging Clinician: Jeremy Anaya Anticipated Discharge Date/Time: 02/10/22 17:43 Patient Disposition: Home, Self-Care Activity: as tolerated Diet: as tolerated and regular Patient Instructions: Antibiotic Form Stand Alone Forms: General Discharge Information Follow-up/Referrals: Cuba Powers MD [Physician] - Discharge Medications: Continued multivitamin Tablet 1 tablet PO DAILY sennosides-docusate sodium [Senna with Docusate Sodium] 8.6-50 mg tablet 50 tab-cap PO HS ondansetron HCl [Zofran] 4 mg tablet 4 mg PO Q8H PRN (Reason: nausea and vomiting) Qty: 10 1RF enalapril maleate 20 mg tablet 20 mg PO DAILY Qty: 180 3RF pantoprazole 40 mg tablet,delayed release (DR/EC) 40 mg PO QAM Qty: 90 1RF clonazepam 2 mg tablet 2 mg PO BID Qty: 60 1RF simvastatin 80 mg tablet See Rx Instructions .ROUTE .COMPLEX Qty: 90 1RF Dose Instruction: TAKE 1 TABLET BY MOUTH EVERY DAY Rx Instructions: TAKE 1 TABLET BY MOUTH EVERY DAY cyclobenzaprine 10 mg tablet 10 mg PO TID PRN (Reason: Muscle Spasm) Qty: 90 0RF Sutab 1.479-0.188- 0.225 gram tablet See Rx Instructions PO PER PKG DIR Qty: 24 0RF Rx Instructions: Take as Directed [facility] No Action oxycodone-acetaminophen 7.5-325 mg tablet 1 tablet PO Q6H PRN (Reason: Pain) Qty: 30 0RF Date of admission: 02/09/22 21:42 Primary Care Provider: Matthew Byers Admitting Provider: Ella De La O Attending physician on admission: Jeremy Anaya Condition: Stable AMG Discharge Billing Observation Discharge Observation Discharge: [id number] [facility] D/C
== END 2022-02-10 18:00 | disposition home or self-care (01) ==
LOC: ANHED 21:47 → ANH3MEDSUR 22:36
PROVIDERS: Internal Medicine Gastroenterology; Admitting Provider Student in an Organized Health Care Education/Training Program; Emergency Provider Emergency Medicine; PCP Internal Medicine; Visit Provider Family Medicine
PROC: 0DJ08ZZ Inspection of Upper Intestinal Tract, Via Natural or Artificial Opening Endoscopic (ICD-10-PCS; CPT 43235; principal; 2022-02-10 12:30)
DX: K29.70 Gastritis, unspecified, without bleeding (principal); R11.15 Cyclical vomiting syndrome unrelated to migraine; K21.9 Gastro-esophageal reflux disease without esophagitis; Z12.11 Encounter for screening for malignant neoplasm of colon; F41.9 Anxiety disorder, unspecified; I10 Essential (primary) hypertension; E78.2 Mixed hyperlipidemia; F12.90 Cannabis use, unspecified, uncomplicated; F17.210 Nicotine dependence, cigarettes, uncomplicated; Z79.891 Long term (current) use of opiate analgesic
CPT/HCPCS: 43235; G0121; 36415; 74177; 80048; 80053; 81001; 83690; 85025; 87081; 96361; 96372; 96374; 96375; 96376; 99285; A9270; C9113; G0378; J0131; J0500; J1170; J1200; J2060; J2405; J2704; J2765; J7030; J7120; Q9967

== ENCOUNTER 2022-09-02 14:03 | Outpatient (CLI) | payer MEDICARE, MEDICAID, SELFPAY ==
--- NOTE | ~2022-09-02 | XR_ITS ---
EXAM: XR knee RT min 4V DATE: 09/02/2022 14:19 HISTORY: M25.561 - Pain in right knee -Knee will pop out when bending . COMPARISON: None available. FINDINGS: Normal mineralization. No fracture or dislocation. No lytic or blastic lesion. Mild medial joint space narrowing. No erosion or periosteal change. Atherosclerotic calcification. Small volume joint effusion. IMPRESSION: No acute osseous finding in the right knee. Reviewed, dictated and finalized at location K. [employer]
== END 2022-09-02 14:04 | disposition home or self-care (01) ==
LOC: ANHBWCIMG 14:05
PROVIDERS: PCP Family Medicine; Visit Provider Family Medicine
DX: M25.561 Pain in right knee (principal)
CPT/HCPCS: 73564

== ENCOUNTER 2022-11-01 11:50 | Observation (INO) | payer MEDICARE, MEDICAID, SELFPAY ==
[2022-11-01] VITALS (24 sets, daily range): BP systolic 72–151; BP diastolic 54–113; PULSE 63–92; RESP 16–20; TEMP 36.2–36.9; O2SAT 90–100; BMI 26.4
--- NOTE | ~2022-11-01 | CT_ITS ---
EXAMINATION: CT abdomen pelvis w con DATE: 11/01/2022 14:32 INDICATION: abdominal pain TECHNIQUE: Computed tomography (CT) of the abdomen and pelvis was performed with 100 mL Omnipaque-350 intravenous contrast. Automated exposure control and iterative reconstruction technique were employe d. The dose-length product was 672.19 mGy-cm. COMPARISON: 02/09/2022. FINDINGS: Lower thorax: Unremarkable Liver: Normal. Biliary/Gallbladder: Gallbladder is normal. No bile duct dilation. Pancreas: No mass or duct dilation. Spleen: Normal. Adrenals:No mass. Kidneys: No suspicious mass, stone, or hydronephrosis. Simple right midpole cyst. GI tract: No small or large bowel dilation. Appendix not visualized. Mild wall edema affecting the as cending and transverse colon. Mesentery/Peritoneum: No ascites, mass, or free air. Retroperitoneum: No mass. Atherosclerotic abdominal aortic and/or arterial calcifications. Pelvis: Mild inflammatory stranding surrounding the urinary bladder. Mild prostatomegaly. Soft Tissues: Soft tissues and body wall unremarkable. Bones: No acute osseous finding. IMPRESSION: Ascending and transverse colonic wall edema likely reflecting a component of infectious, inflammatory , or ischemic colitis. Mild bladder wall inflammation may be secondary to outlet compromise or cystit is. Reviewed, dictated and finalized at location K. IMPRESSION: Ascending and transverse colonic wall edema likely reflecting a component of in fectious, inflammatory, or ischemic colitis. Mild bladder wall inflammation may be secondary to outlet compromise or cystitis.
[2022-11-01 12:10] LABS: Basophils Percent Auto 0.4 % (0.2-1.2); Eosinophils Percent Auto 0.4 % (0-4.4); Hematocrit 46.9 % (42.0-52.0); Hemoglobin 15.7 g/dL (14.0-18.0); Immature Granulocyte Absolute 0.03 K/mm3 (0.00-0.031); Immature Granulocyte Percent A 0.3 % (0-0.5); Lymphocytes Absolute Auto 4.34 K/mm3 (0.9-3.2); Lymphocytes Percent Auto 39.2 % (18.3-44.2); Mean Corpuscular HGB Conc 33.5 g/dl (32-36); Mean Corpuscular Hemoglobin 31.3 pg (26-34); Mean Corpuscular Volume 93.6 fl (80-100); Monocytes Absolute Auto 0.6 K/mm3 (0.1-0.6); Monocytes Percent Auto 5.1 % (2.6-8.5); Neutrophils Absolute Auto 6.1 K/mm3 (1.3-6.7); Neutrophils Percent Auto 54.6 % (45.5-73.1); Platelet Count Result 221 k/mm3 (150-375); Red Blood Count 5.01 M/mm3 (4.6-6.20); Red Cell Distribution Width 12.4 % (11.5-14.5); White Blood Count 11.1 K/mm3 (4.5-10.0)
[2022-11-01 12:24] LABS: Alanine Aminotransferase 21 U/L (6-50); Albumin Level 4.9 g/dL (3.5-5.1); Alkaline Phosphatase 67 U/L (38-126); Anion Gap 9 mmol/L (8-16); Aspartate Amino Transferase 26 U/L (17-59); Bilirubin,Total 1.1 mg/dL (0.2-1.3); Blood Urea Nitrogen 18 mg/dL (9-20); Carbon Dioxide 29 mmol/L (22-30); Chloride 100 mmol/L (98-107); Estimated CRCL calculation 85 ml/min; Estimated Glomerular Filt Rate > 60; Glucose 119 mg/dL (65-110); Lipase 30 U/L (23-300); Potassium 3.4 mmol/L (3.4-5.0); Sodium 138 mmol/L (137-145)
[2022-11-01] MEDS: SODIUM CHLORIDE 0.9% IV 1,000 ML 999 ML IV CONT (13:59)
[2022-11-01] MEDS: ONDANSETRON INJ 4 MG/2 ML VIAL IV PUSH (14:00)
[2022-11-01] MEDS: MORPHINE SULFATE (*CRX) 4 MG/ML INJ IV PUSH (14:00)
--- NOTE | 2022-11-01 14:02 | ED.ABDPAIN ---
HPI - Abdominal Pain General Chief Complaint: Abdominal Pain <Otis Ashton APRN - Last Filed: 11/01/22 15:49> Stated Complaint: abdominal pain with vomiting <Otis Ashton APRN - Last Filed: 11/01/22 15:49> Time Seen by Provider: 11/01/22 13:41 <Otis Ashton APRN - Last Filed: 11/01/22 15:49> Source: patient <Otis Ashton APRN - Last Filed: 11/01/22 15:49> Mode of arrival: ambulatory <Otis Ashton APRN - Last Filed: 11/01/22 15:49> Limitations: no limitations <Otis Ashton APRN - Last Filed: 11/01/22 15:49> History of Present Illness HPI narrative: 57 y/o male presents with n/v that started yesterday. patient states he has a hx of gerd and he smokes medical marijuana for this condition but has ran out. patient denies fevers. patient states he has had gerd for 40 years and has seen multiple GI's with no relief. patient denies any other symptoms. no other complaints. <Otis Ashton APRN - Last Filed: 11/01/22 15:49> 57 y/o male presents with n/v that started yesterday. patient states he has a hx of gerd and he smokes medical marijuana for this condition but has ran out. patient denies fevers. patient states he has had gerd for 40 years and has seen multiple GI's with no relief. patient denies any other symptoms. no other complaints. <Onelia Smith PA-C - Last Filed: 11/01/22 16:59> elicited complaint: abdominal pain <Otis Ashton APRN - Last Filed: 11/01/22 15:49> Onset (ago): day(s) (1) <Otis Ashton APRN - Last Filed: 11/01/22 15:49> Location: diffuse <Otis Ashton APRN - Last Filed: 11/01/22 15:49> Quality: cramping <Otis Ashton APRN - Last Filed: 11/01/22 15:49> Relieving factors: vomiting <Otis Ashton APRN Last Filed: 11/01/22 15:49> Associated symptoms: nausea <Otis Ashton APRN Last Filed: 11/01/22 15:49> Related Data Home Medications: Home Medications Medication Instructions Recorded Confirmed multivitamin 1 tablet PO DAILY 05/16/21 06/24/22 sennosides 8.6 mg-docusate sodium 50 tab-cap PO HS constipation 02/10/22 06/24/22 50 mg tablet (Senna with Docusate Sodium) ondansetron HCl 4 mg tablet 4 mg PO Q8H PRN nausea and vomiting 06/11/22 06/24/22 (Zofran) <Otis Ashton Last Filed: 11/01/22 15:49> Allergies/Adverse Reactions: Allergies Allergy/AdvReac Type Severity Reaction Status Date / Time No Known Allergies Allergy Verified 11/01/22 11:51 <Otis Ashton APRN Last Filed: 11/01/22 15:49> Review of Systems Review of Systems: All systems reviewed & are unremarkable except as noted in HPI and below <Otis Ashton APRN Last Filed: 11/01/22 15:49> Constitutional: Constitutional: Reports no additional constitutional complaints and Denies fever(s) <Otis Ashton APRN Last Filed: 11/01/22 15:49> Eyes: Eyes: Reports no additional eye complaints <Otis Ashton APRN Last Filed: 11/01/22 15:49> ENT: Reports system reviewed and no additional complaints, except as documented <Otis Ashton APR Last Filed: 11/01/22 15:49> Cardiovascular: Cardiovascular: Reports no additional cardiovascular complaints <Otis Ashton APRN Last Filed: 11/01/22 15:49> Respiratory: Respiratory: Reports no additional respiratory complaints <Otis Ashton APRN Last Filed: 11/01/22 15:49> Gastrointestinal: Gastrointestinal: Reports abdominal pain, Reports nausea and Reports vomiting <Otis Ashton APRN - Last Filed: 11/01/22 15:49> Genitourinary: Genitourinary: Reports no additional male genitourinary complaints <Otis Ashton APRN - Last Filed: 11/01/22 15:49> Musculoskeletal: Musculoskeletal: Reports no additional musculoskeletal complaints <Otis Ashton APRN - Last Filed: 11/01/22 15:49> Integumentary/Breasts: Skin/Breast: Reports system reviewed and no additional complaints, except as docu <Otis Ashton APRN - Last Erik
[2022-11-01] MEDS: PANTOPRAZOLE SODIUM IV 40 MG VIAL IV PUSH ×2 (14:03→18:33)
[2022-11-01] MEDS: DICYCLOMINE HCL INJ 20 MG/2 ML VIAL IM (14:07)
[2022-11-01 15:31] LABS: Lactic Acid Reflex 3.2 mmol/L (0.7-2.0)
[2022-11-01] MEDS: PROCHLORPERAZINE EDISYLATE 10 MG/2 ML VIAL IV PUSH (15:41)
[2022-11-01] MEDS: diphenhydrAMINE HCl INJ 50 MG/ML VIAL 25 MG IV PUSH (15:41)
[2022-11-01 15:56] LABS: Appearance Urine Clear (Clear); Bilirubin Urine Negative (Negative); Blood Urine Trace-lysed (Negative); Color Urine Yellow (Yellow); Glucose Urine UA Negative (Negative); Ketones Urine 1+ mg/dL (Negative); Leukocyte Esterase Ur Negative LEU/UL (Negative); Nitrate Urine Negative (Negative); Protein Urine Trace mg/dL (Negative); Specific Grav Ur 1.015 (1.001-1.035); Urobilinogen Urine 0.2 mg/dL (<2.0)
[2022-11-01 16:06] LABS: Add Urine Microscopic? YES; WBC Urine 0-3 /hpf (0-3)
[2022-11-01 16:07] LABS: Bacteria Urine Trace /hpf; Squamous Epithelial Cell Urine Rare /hpf (Few)
--- NOTE | 2022-11-01 17:25 | PM.IMHP ---
H&P: HPI History of Present Illness Date/Time: 11/01/22 17:25 Chief Complaint: Nausea, vomiting, abdominal pain. Narrative: This is a 57-year-old male with history of anxiety, hypertension, hyperlipidemia, and chronic back pain on long-term opiate therapy who presented to the emergency department for evaluation of nausea, vomiting, and abdominal pain. Patient provides the following history. About 24 hours ago he developed pretty sudden onset of severe nausea and he reports too numerous to count episodes of non biliary and nonbloody emesis. He estimates that he has vomited up ?at least several gallons? and he feels weak and dehydrated. He also complains of diffuse, periumbilical pain which he tells me feels as though ?a fork is raking the garcia of my intestine.? He has not had diarrhea in fact he reports having normal bowel movement last night. He denies fever, chills, sweats, sick contacts, recent travel, and antibiotic use. No documented fever though he denies chills, sweats, and shakes. He was afebrile on arrival to the ED. Blood pressures have been soft but responsive to IV fluids. Labs were significant for WBC count of 11.1, normal electrolytes, BUN 18, creatinine 0.90, lactic acid 3.2, normal LFTs and lipase. CT of the abdomen and pelvis shows ascending and transverse colonic wall edema likely reflecting a component of infectious, inflammatory, or ischemic colitis. He reports a history of colitis and intussusception years ago. No history of inflammatory bowel disease. Review of Systems Review of Systems: Twelve systems were reviewed and are negative except for as per HPI. [facility] Past Medical History Medical History Anxiety Chronic low back pain Chronic prescription opiate use Essential (primary) hypertension Gastroesophageal reflux disease without esophagitis History of cerebral hemorrhage Obtain in a 2 story fall. History of intussusception (2011) Mixed hyperlipidemia Nausea & vomiting Osteoarthritis of cervical spine Peptic ulcer Vision loss Surgical History Surgical History History of appendectomy (1979) History of facial surgery (2000) Family History Family History Father Family history of diabetes mellitus in first degree relative Family history of heart disease in male family member before age 55 Family history of malignant neoplasm Mother Family history of diabetes mellitus in first degree relative Family history of heart disease in male family member before age 55 Family history of malignant neoplasm Sibling Family history of diabetes mellitus in first degree relative Family history of heart disease in male family member before age 55 Other Diabetes mellitus HLD (hyperlipidemia) Heart disease Hypertension Lung cancer Lung disease Social History Social History Social History: Surrogate decision maker: Maico Schultz, [id number]. Code status: Full code. Smoking packs per day: 0.5 Smoking cigarettes per day: 10.0 Years smoked: 20 Smoking pack-years: 10.00 Smoking status: Current every day smoker Tobacco type: cigarettes Second hand tobacco smoke exposure: Yes Alcohol intake: never Substance use: current Substance use type: marijuana Other substance usage details: Medical marijuana. Lack of Transportation: No Lack of Food: Never True Current Housing: Decline to Answer Concerned About Future Housing: No Difficulty Paying Gas/Electric Bills: No Difficulty Paying for Meds: No Currently Unemployed: No Education: High School Diploma/GED Difficulty w/ Childcare or Family Care: Decline to Answer Living arrangements: alone Additional living arrangements comments: Very recently . Occupation/Education: other Additi
[2022-11-01] MEDS: metroNIDAZOLE 500 MG/ISO 100ML 500 MG/100 ML BAG 100 MG IVPB (17:40)
[2022-11-01] MEDS: SODIUM CHLORIDE 0.9% IV 1,000 ML 125 ML IV CONT (17:50)
[2022-11-01] MEDS: CIPROFLOXACIN 400 MG/D5W 200ML 200 ML 200 MG IVPB (17:50)
[2022-11-01 18:16] LABS: Reflex Lactic Acid Yes or No Add Lactic
[2022-11-01 19:10] LABS: Lactic Acid 1.6 mmol/L (0.7-2.0)
--- NOTE | 2022-11-01 22:46 | PC.NURSE ---
Addendum entered by Aria Cooley RN 11/01/22 23:42: Oral Tylenol ordered only at the time. Original Note: Called hospitalist, Marcia Malagon, for pain meds. Oral meds ordered along with a clear liquid diet but pt was NPO previously. Clarified with hospitalist if pt should continue to be NPO or can be on clear liquids & take oral medication. Hospitalist said it was okay to move pt to clear liquids & can have oral meds.
== END 2022-11-02 12:00 | disposition left against medical advice (07) ==
LOC: ANHED 16:59 → ANH2MED 18:37
PROVIDERS: Emergency Medicine; Admitting Provider Student in an Organized Health Care Education/Training Program; Emergency Provider Nurse Practitioner Family; PCP Family Medicine; Visit Provider Student in an Organized Health Care Education/Training Program
DX: A41.9 Sepsis, unspecified organism (principal); K52.9 Noninfective gastroenteritis and colitis, unspecified; E86.0 Dehydration; I95.9 Hypotension, unspecified; Z53.29 Procedure and treatment not carried out because of patient's decision for other reasons; K21.9 Gastro-esophageal reflux disease without esophagitis; F41.9 Anxiety disorder, unspecified; G89.29 Other chronic pain; M54.9 Dorsalgia, unspecified; E78.2 Mixed hyperlipidemia; M47.812 Spondylosis without myelopathy or radiculopathy, cervical region; E87.20 Acidosis, unspecified; I70.0 Atherosclerosis of aorta; F17.210 Nicotine dependence, cigarettes, uncomplicated; F12.90 Cannabis use, unspecified, uncomplicated; Z79.891 Long term (current) use of opiate analgesic; Z79.899 Other long term (current) drug therapy; Z82.49 Family history of ischemic heart disease and other diseases of the circulatory system; Z83.438 Family history of other disorder of lipoprotein metabolism and other lipidemia
CPT/HCPCS: 36415; 74177; 80053; 81001; 83605; 83690; 85025; 87040; 96361; 96372; 96374; 96375; 96376; 99285; C9113; G0378; J0500; J0744; J0780; J1200; J2270; J2405; J7030; Q9967

== ENCOUNTER 2022-12-10 08:52 | Outpatient (CLI) | payer MEDICARE, MEDICAID, SELFPAY ==
--- NOTE | ~2022-12-10 | XR_ITS ---
XR lumbar spine 2-3V 12/10/2022 09:06 Indication: Low back pain Procedure: 3 views lumbar spine Comparison: No prior studies for comparison. Findings: There is disc narrowing at L4-5 and L5-S1. No fracture, subluxation or dislocation. No spon dylolisthesis. Vertebral body heights are maintained. Impression: 1: Moderate lumbar spondylosis. Reviewed, dictated and finalized at location B. Impression: 1: Moderate lumbar spondylosis.
== END 2022-12-10 08:53 | disposition home or self-care (01) ==
LOC: ANHBWCIMG 08:58
PROVIDERS: PCP Family Medicine; Referring Provider Pain Medicine Interventional Pain Medicine; Visit Provider Nurse Practitioner
DX: M54.41 Lumbago with sciatica, right side (principal); M47.896 Other spondylosis, lumbar region
CPT/HCPCS: 72100

== ENCOUNTER 2024-01-18 09:30 | Outpatient (CLI) | payer MEDICARE, SELFPAY ==
[2024-01-18 19:05] LABS: Basophils Percent Auto 0.2 % (0.2-1.2); Eosinophils Absolute Auto 0.1 K/mm3 (0-0.3); Eosinophils Percent Auto 0.9 % (0-4.4); Hematocrit 49.9 % (42.0-52.0); Hemoglobin 16.5 g/dL (14.0-18.0); Immature Granulocyte Absolute 0.03 K/mm3 (0.00-0.031); Immature Granulocyte Percent A 0.3 % (0-0.5); Lymphocytes Absolute Auto 3.02 K/mm3 (0.9-3.2); Lymphocytes Percent Auto 29.9 % (18.3-44.2); Mean Corpuscular HGB Conc 33.1 g/dl (32-36); Mean Corpuscular Hemoglobin 31.7 pg (26-34); Mean Corpuscular Volume 95.8 fl (80-100); Mean Platelet Volume 10.1 fl (7.4-10.4); Monocytes Absolute Auto 0.6 K/mm3 (0.1-0.6); Neutrophils Absolute Auto 6.3 K/mm3 (1.3-6.7); Neutrophils Percent Auto 62.7 % (45.5-73.1); Platelet Count Result 245 k/mm3 (150-375); Red Blood Count 5.21 M/mm3 (4.6-6.20); Red Cell Distribution Width 13.3 % (11.5-14.5); White Blood Count 10.1 K/mm3 (4.5-10.0)
[2024-01-18 23:20] LABS: Alanine Aminotransferase 20 U/L (6-50); Albumin Level 5.1 g/dL (3.5-5.1); Alkaline Phosphatase 66 U/L (38-126); Anion Gap 10 mmol/L (4-12); Aspartate Amino Transferase 49 U/L (17-59); Bilirubin,Total 0.8 mg/dL (0.2-1.3); Blood Urea Nitrogen 15 mg/dL (9-20); Calcium 9.6 mg/dL (8.4-10.2); Carbon Dioxide 26 mmol/L (22-30); Chloride 101 mmol/L (98-107); Cholesterol 162 mg/dL (0-200); Estimated Glomerular Filt Rate > 60; Glucose 100 mg/dL (65-110); HDL Direct 51 mg/dL; Magnesium 2.5 mg/dL (1.6-2.3); Potassium 3.9 mmol/L (3.4-5.0); Sodium 137 mmol/L (137-145); Triglycerides 100 mg/dL (<150)
[2024-01-18 23:31] LABS: LDL Cholesterol Direct 89 mg/dL
[2024-01-18 23:49] LABS: Prostate Specific Antigen 2.6 ng/mL (< OR = 4.0)
== END 2024-01-18 09:31 | disposition home or self-care (01) ==
PROVIDERS: PCP Nurse Practitioner Adult Health; Visit Provider Nurse Practitioner Adult Health
DX: Z12.5 Encounter for screening for malignant neoplasm of prostate (principal); I10 Essential (primary) hypertension
CPT/HCPCS: 36415; 80053; 80061; 83735; 84153; 84443; 85025; G0103